=== PATIENT | male | born 1980 | race Caucasian/White ===

== ENCOUNTER 2017-06-09 22:55 | Emergency (ER) | payer SELFPAY ==
[~2017-06-09] VITALS: Ht 182.9 cm; Wt 85.0 kg
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
[2017-06-09 23:19] VITALS: BP 135/81; PULSE 97; RESP 12; TEMP 98.9; O2SAT 98
[2017-06-09] MEDS ORDERED: SODIUM CHLOR 0.9% 1000 ML INJ 1,000 ML IV ONE (23:31)
[2017-06-09 23:33] VITALS: RESP 17; O2SAT 99
[2017-06-09] MEDS ORDERED: SODIUM CHLORIDE 0.9% FLUSH 10 ML FLUSH IVF PRN (23:45)
[2017-06-09 23:46] LABS: AUTOMATED NEUTROPHIL # 3.7 TH/MM3 (1.8-7.7); BASOPHIL % 0.4 % (0.0-2.0); EOSINOPHIL # 0.1 TH/MM3 (0-0.4); EOSINOPHIL % 1.1 % (0.0-4.0); HEMATOCRIT 40.5 % (39.0-51.0); HEMO FLAGS DIFF FINAL; LYMPH % 23.4 % (9.0-44.0); LYMPHOCYTE # 1.3 TH/MM3 (1.0-4.8); MEAN CELL VOLUME 86.1 FL (80.0-100.0); MEAN CORPUSCULAR HEMOGLOBIN 29.9 PG (27.0-34.0); MEAN CORPUSCULAR HGB CONC 34.7 % (32.0-36.0); MONO % 10.5 % (0.0-8.0); NEUT % 64.6 % (16.0-70.0); PLATELET COUNT 222 TH/MM3 (150-450); RED CELL DISTRIBUTION WIDTH 14.1 % (11.6-17.2); WHITE BLOOD COUNT 5.7 TH/MM3 (4.0-11.0)
[2017-06-09 23:52] LABS: BLOOD, URINE NEG (NEG); GLUCOSE,URINE NEG (NEG); HYALINE CAST, URINE 1 /lpf (RARE); KETONE, URINE NEG (NEG); NITRITE,URINE NEG (NEG); PH, URINE 6.5 (5.0-8.5); SQUAMOUS EPITHELIAL CELL URINE <1 /hpf (0-5); URINE COLOR YELLOW (YELLW/STRAW)
[2017-06-09 23:58] LABS: COMMENT (UR) CULT NOT INDICATED; CULTURE IF INDICATED CULT NOT INDICATED
[2017-06-10 00:06] LABS: APTT (PATIENT) 26.4 SEC (24.3-30.1); PROTHROMBIN TIME - PATIENT 11.1 SEC (9.8-11.6)
[2017-06-10 00:22] LABS: ALKALINE PHOSPHATASE 145 U/L (45-117); TOTAL BILIRUBIN ADULT 0.3 MG/DL (0.2-1.0)
--- NOTE | 2017-06-10 00:24 | RADRPT ---
EXAM DATE/TIME: 06/09/2017 23:41 [facility] COMPARISON: No previous studies available for comparison. INDICATIONS : Short of breath after possible overdose. MEDICAL HISTORY : None. SURGICAL HISTORY : None. ENCOUNTER: Initial ACUITY: 1 day PAIN SCORE: 0/10 LOCATION: Bilateral chest FINDINGS: A single view of the chest demonstrates the lungs to be symmetrically aerated without evidence of mas s, infiltrate or effusion. The cardiomediastinal contours are unremarkable. Osseous structures are intact. CONCLUSION: 1. No acute cardiopulmonary disease. Charanjit Pace MD on June 10, 2017 at 0:23 Board Certified Radiologist. This report was verified electronically.
[2017-06-10 00:26] LABS: ALT (GPT) 29 U/L (12-78); ANION GAP 6 MEQ/L (5-15); AST (GOT) 56 U/L (15-37); BLOOD UREA NITROGEN 9 MG/DL (7-18); CHLORIDE 102 MEQ/L (98-107); GLOMERULAR FILTRATION RATE 66 ML/MIN (>89); SODIUM (NA) 138 MEQ/L (136-145)
[2017-06-10 00:27] LABS: ACETAMINOPHEN LESS THAN 2.0 MCG/ML (10.0-30.0); ALCOHOL LESS THAN 3 MG/DL (0-5); POTASSIUM 4.5 MEQ/L (3.5-5.1)
--- NOTE | 2017-06-10 18:43 | EKG ---
Date Performed: 06/09/2017 Time Performed: 23:14:59 PTAGE: 36 years EKG: Sinus rhythm NORMAL ECG INTERPRETATION BASED ON A DEFAULT AGE OF 39 YEARS Compared to prior tracing no significan t change PREVIOUS TRACING : 12/26/2010 15.30.36 DOCTOR: Lorri Roberts Interpretating Date/Time 06/10/2017 18:42:24
== END 2017-06-10 02:40 | disposition home or self-care (01) ==
LOC: NEPC 22:55
DX: T40.1X1A Poisoning by heroin, accidental (unintentional), initial encounter (principal); F17.200 Nicotine dependence, unspecified, uncomplicated; R06.02 Shortness of breath
CPT/HCPCS: 71010; 80053; 80307; 81001; 85025; 85610; 85730; 93005; 99285; J7030

== ENCOUNTER 2017-06-15 00:38 | Inpatient (IN) | payer SELFPAY ==
[2017-06-15] VITALS (11 sets, daily range): BP systolic 117–139; BP diastolic 62–82; PULSE 79–104; RESP 16–26; TEMP 97.6–99.1; O2SAT 95–98
[~2017-06-15] VITALS: Ht 188 cm; Wt 94.1 kg
[2017-06-15] MEDS ORDERED: LORazepam 2 MG/ML VIAL ONE (00:43)
[2017-06-15] MEDS ORDERED: KETAMINE HCL 500 MG/5 ML VIAL ONE (00:48)
[2017-06-15] MEDS ORDERED: LORazepam 2 MG/ML VIAL IM ONE ×3 (01:00)
[2017-06-15] MEDS ORDERED: KETAMINE HCL 500 MG/5 ML VIAL IM ONE (01:00)
[2017-06-15] MEDS ORDERED: SODIUM CHLOR 0.9% 1000 ML INJ 1,000 ML IV ONE (01:00)
--- NOTE | 2017-06-15 01:23 | PD ---
HPI Chief Complaint: overdose Time Seen by Provider: 00:48 Travel History International Travel<30 days: No Contact w/Intl Traveler<30days: No History of Present Illness HPI So 36-year-old man who presents to the emergency department brought in by EMS. Reportedly on a "drug binge" for the past several days without sleeping. He endorses heroin marijuana and cocaine use. Correlation about a friend's house who called EMS. He required restraint and sedation in route with 2 mg of Ativan. History Past Medical History Narrative Medical From review of records: hepatitis C status post successful treatment with Harvoni, polysubstance abuse , IV drug use. Social History Alcohol Use: No Tobacco Use: Yes (1 PPD) Allergies-Medications (Allergen,Severity, Reaction): Coded Allergies: No Known Allergies (Verified , 01/21/14) Reported Meds & Prescriptions Reported Meds & Active Scripts Active No Active Prescriptions or Reported Medications Review of Systems Except as stated in HPI: all other systems reviewed are Neg Physical Exam Narrative GENERAL: 36-year-old man, gesticulating wildly writhing and thrashing in the bed , minimally directable. SKIN: Hot and wet. HEAD: Atraumatic. Normocephalic. EYES: Pupils equal and round. No scleral icterus. No injection or drainage. ENT: No nasal bleeding or discharge. Mucous membranes pink and moist. CARDIOVASCULAR: Heart rate rapid, regular. No appreciable murmurs. RESPIRATORY: No accessory muscle use. Clear to auscultation. Breath sounds equal bilaterally. GASTROINTESTINAL: Abdomen soft, non-tender, nondistended. Hepatic and splenic margins not palpable. MUSCULOSKELETAL: No obvious deformities. No edema. No evidence of injury. NEUROLOGICAL: Agitated and hypervigilant, minimally directable, able to speak full sentences and answer some questions but nonsensical as well. Data Data Last Documented VS Vital Signs Date Time Temp Pulse Resp B/P (MAP) Pulse Ox O2 Delivery O2 Flow Rate FiO2 06/15/17 01:55 30 97 Room Air 06/15/17 00:50 99.1 104 137/80 (99) Orders Orders Lorazepam Inj (Ativan Inj) (06/15/17 00:43) Ketamine Inj (Ketalar Inj) (06/15/17 00:48) Ketamine Inj (Ketalar Inj) (06/15/17 01:00) Lorazepam Inj (Ativan Inj) (06/15/17 01:00) Lorazepam Inj (Ativan Inj) (06/15/17 01:00) Iv Access Insert/Monitor (06/15/17 00:54) Ecg Monitoring (06/15/17 00:54) Sodium Chlor 0.9% 1000 Ml Inj (Ns 1000 M (06/15/17 01:00) Complete Blood Count With Diff (06/15/17 00:54) Comprehensive Metabolic Panel (06/15/17 00:54) Creatine Kinase (Cpk) (06/15/17 00:54) Lorazepam Inj (Ativan Inj) (06/15/17 01:00) CKMB (06/15/17 01:15) CKMB% (06/15/17 01:15) Admit Order (Ed Use Only) (06/15/17 ) Labs Laboratory Tests Test 06/15/17 01:15 White Blood Count 17.7 TH/MM3 Red Blood Count 4.58 MIL/MM3 Hemoglobin 13.4 GM/DL Hematocrit 39.0 % Mean Corpuscular Volume 85.2 FL Mean Corpuscular Hemoglobin 29.2 PG Mean Corpuscular Hemoglobin Concent 34.3 % Red Cell Distribution Width 14.1 % Platelet Count 206 TH/MM3 Mean Platelet Volume 9.2 FL Neutrophils (%) (Auto) 70.4 % Lymphocytes (%) (Auto) 13.9 % Monocytes (%) (Auto) 14.9 % Eosinophils (%) (Auto) 0.4 % Basophils (%) (Auto) 0.4 % Neutrophils # (Auto) 12.5 TH/MM3 Lymphocytes # (Auto) 2.5 TH/MM3 Monocytes # (Auto) 2.6 TH/MM3 Eosinophils # (Auto) 0.1 TH/MM3 Basophils # (Auto) 0.1 TH/MM3 CBC Comment AUTO DIFF Differential Total Cells Counted 100 Neutrophils % (Manual) 79 % Lymphocytes % 15 % Monocytes % 6 % Neutrophils # (Manual) 14.0 TH/MM3 Differential Comment FINAL DIFF MANUAL Platelet Estimate NORMAL Platelet Morphology Comment NORMAL Red Cell Morphology Comment NORMAL Blood Urea Nitrogen 11 MG/DL Creatinine 1.10 MG/DL Random Glucose 64 MG/DL Total Protein 7.3 GM/DL Albumin 3.5 GM/DL Calcium Level 8.7 MG/DL Alkaline Phosphatase 122 U/L Aspartate Amino Transf (AST/SGOT) 110 U/L Alanine Aminotransferase (ALT/SGPT) 42 U/L Total Bilirubin 0.7 MG/DL Sodium Level 138 MEQ/L Potassium Level 4.0 MEQ/L Chloride Level 102 MEQ/L Carbon Dioxide Level 23.0 MEQ/L Anion Gap 13 MEQ/L Estimat Glomerular Filtration Rate 75 ML/MIN Total Creatine Kinase 2864 U/L Creatine Kinase MB 17.4 NG/ML Creatine Kinase MB % 0.6 % MDM Medical Decision Making Medical Screen Exam Complete: Yes Emergency Medical Condition: Yes Interpretation(s) LABS: CC remarkable for white count of 17.7 thousand CMP generally unremarkable. AST is a little bit elevated. Total CK 2864 Differential Diagnosis Agitated delirium, adverse effect of illicit drugs, drug withdrawal syndrome, other Narrative Course Medical decision-making 36-year-old man presents with agitated delirium clinical picture associated with polysubstance also drug abuse. Initially given serial doses of 2 mg of IM Ativan for a total of 6 mg total. Continued agitated delirium thrashing point restraints. Patient was given 300 mg or approximately 3 mg/kg ketamine with moderate response. Still with continued thrashing after 10 or 15 minutes. Patient was given a second dose of 200 mg IM ketamine and 2 mg of IM Ativan for a total of 8 mg by mouth Ativan total. Patient finally settled out some. At the point where it would get IV access, place patient back on a monitor. Given IV fluids, we'll check labs, monitor and the ICU. Critical Care Narrative Aggregate critical care time was 45 minutes. Time to perform other separately billable procedures was not included in the critical care time. My time did not include minutes spent treating any other patients simultaneously or on activities that did not directly contribute to the patient's treatment. The services I provided to this patient were to treat and/or prevent clinically significant deterioration that could result in: , disability, rhabdomyolysis, renal failure, respiratory failure, other. I provided critical care services requiring my management, as noted below: Chart data review, documentation time, medication orders and management, vital sign assessments/reviewing monitor data, ordering and reviewing lab tests, ordering and interpreting/reviewing x-rays and diagnostic studies, care of the patient and discussion of the patient with the admitting physicians. Diagnosis Primary Impression: Delirium, drug-induced Admitting Information Admitting Physician Requests: Admit Scripts No Active Prescriptions or Reported Meds Reymundo Engel MD Jun 15, 2017 01:23
[2017-06-15 01:36] LABS: AUTOMATED NEUTROPHIL # 12.5 TH/MM3 (1.8-7.7); BASOPHIL # 0.1 TH/MM3 (0-0.2); BASOPHIL % 0.4 % (0.0-2.0); EOSINOPHIL # 0.1 TH/MM3 (0-0.4); EOSINOPHIL % 0.4 % (0.0-4.0); LYMPH % 13.9 % (9.0-44.0); LYMPHOCYTE # 2.5 TH/MM3 (1.0-4.8); MEAN CELL VOLUME 85.2 FL (80.0-100.0); MEAN CORPUSCULAR HEMOGLOBIN 29.2 PG (27.0-34.0); MEAN CORPUSCULAR HGB CONC 34.3 % (32.0-36.0); MONO % 14.9 % (0.0-8.0); NEUT % 70.4 % (16.0-70.0); PLATELET COUNT 206 TH/MM3 (150-450); RED BLOOD COUNT 4.58 MIL/MM3 (4.50-5.90); RED CELL DISTRIBUTION WIDTH 14.1 % (11.6-17.2); WHITE BLOOD COUNT 17.7 TH/MM3 (4.0-11.0)
[2017-06-15 01:40] LABS: HEMO FLAGS AUTO DIFF
[2017-06-15 01:50] LABS: ALT (GPT) 42 U/L (12-78); ANION GAP 13 MEQ/L (5-15); AST (GOT) 110 U/L (15-37); BLOOD UREA NITROGEN 11 MG/DL (7-18); CHLORIDE 102 MEQ/L (98-107); GLOMERULAR FILTRATION RATE 75 ML/MIN (>89); SODIUM (NA) 138 MEQ/L (136-145)
[2017-06-15 02:04] LABS: ALKALINE PHOSPHATASE 122 U/L (45-117); CREATINE KINASE 2864 U/L (39-308); TOTAL BILIRUBIN ADULT 0.7 MG/DL (0.2-1.0)
[2017-06-15 02:12] LABS: POLYS (SEG NEUTROPHILS) 79 % (16-70); WBC DIFF SAMPLE 100
[2017-06-15 02:13] LABS: PLATELET ESTIMATE SMEAR NORMAL (NORMAL); PLATELET MORPHOLOGY NORMAL (NORMAL); SCAN/DIFF FINAL DIFF MANUAL
[2017-06-15 02:23] LABS: CKMB 17.4 NG/ML (0.5-3.6)
[2017-06-15] MEDS ORDERED: SENNOSIDES 8.6 MG TAB PO PRN (03:00)
[2017-06-15] MEDS ORDERED: ACETAMINOPHEN 325 MG TAB PO PRN (03:00)
[2017-06-15] MEDS ORDERED: ONDANSETRON HCL 4 MG/2 ML VIAL IVP PRN (03:00)
[2017-06-15] MEDS ORDERED: CHLORHEXIDINE GLUCONATE 2 % 1 PACK (2 CLOTHS) TOP PRN (03:00)
[2017-06-15] MEDS ORDERED: LACTULOSE SYRUP 20 GM/30 ML CUP PO PRN (03:00)
[2017-06-15] MEDS ORDERED: BISACODYL 10 MG SUPP RECTAL PRN (03:00)
[2017-06-15] MEDS ORDERED: MAGNESIUM HYDROXIDE SUSP 30 ML CUP PO PRN (03:00)
[2017-06-15] MEDS ORDERED: MISCELLANEOUS NURSING INFORMATION XX SCH (03:00)
[2017-06-15] MEDS ORDERED: SODIUM CHLORIDE 0.9% FLUSH 10 ML FLUSH IV FLUSH PRN (03:00)
[2017-06-15] MEDS: SODIUM CHLOR 0.9% 1000 ML INJ 1,000 ML IV SCH ×4 (03:09→20:36)
--- NOTE | 2017-06-15 03:11 | HHI.HP ---
[facility] Admission Diagnosis Agitated Delirium / AMS Diagnoses: (1) Delirium, drug-induced Diagnosis: Principal (2) Rhabdomyolysis Diagnosis: Principal (3) Leukocytosis Diagnosis: Principal (4) Dehydration Diagnosis: Principal Travel History International Travel<30 Days: No Contact w/Intl Traveler <30 Da: No Traveled to Known Affected Are: No History of Present Illness This is a 36-year-old male with a PMH of Hepatitis C, Tobacco Abuse and IVDU who was brought to the ER by EMS after taking multiple drugs, on arrival pt significantly agitated and combative. States he's been on a "binge" for the last several days, admits to Opiates, Cocaine and Marijuana. S/p Ketamine 500mg IM in addition to Ativan 8mg IV total in ER, currently in restraints, now calm. Recent ER visit 06/09/17 for accidental Heroin/Cocaine IV overdose, s/p Narcan, d/c'd from ER w/ referral to [facility]. BP 137/80, HR 104, O2 sat 97% on RA, Temp 99.1. WBC 17.7. Chemistry unremarkable except for GFR 75. CPK 2864. Review of Systems Except as stated in HPI: all other systems reviewed are Neg ROS: 14 point review of systems otherwise negative. Past Family Social History Past Medical History PMH: Hepatitis C, Tobacco Abuse and IVDU Past Surgical History PAST SURGICAL HISTORY: Back Surgery, Left Tib-fib Allergies: Coded Allergies: No Known Allergies (Verified , 01/21/14) Family History PAST FAMILY HISTORY: Reviewed. No h/o DM or CAD Social History PAST SOCIAL HISTORY: Negative for alcohol. Smokes 1ppd. IVDU w/ Heroin/ Cocaine. Physical Exam Vital Signs Vital Signs Date Time Temp Pulse Resp B/P (MAP) Pulse Ox O2 Delivery O2 Flow Rate FiO2 06/15/17 01:55 30 97 Room Air 06/15/17 00:50 99.1 104 16 137/80 (99) 97 Physical Exam PE: GENERAL: Middle-aged white male in no acute distress currently calm, in restraints. HEENT: PERRLA, EOMI. No scleral icterus or conjunctival pallor. No lid lag or facial droop. CARDIOVASCULAR: Regular rate and rhythm. No obvious murmurs to auscultation. No chest tenderness to palpation. RESPIRATORY: No obvious rhonchi or wheezing. Clear to auscultation. Breath sounds equal bilaterally. GASTROINTESTINAL: Abdomen soft, non-tender, nondistended. BS normal. MUSCULOSKELETAL: Extremities without clubbing, cyanosis, or edema. No obvious deformities. NEUROLOGICAL: Awake, alert and oriented x4. No focal neurologic deficits. Moving both upper and lower extremities spontaneously. Laboratory Laboratory Tests Test 06/15/17 01:15 White Blood Count 17.7 Red Blood Count 4.58 Hemoglobin 13.4 Hematocrit 39.0 Mean Corpuscular Volume 85.2 Mean Corpuscular Hemoglobin 29.2 Mean Corpuscular Hemoglobin Concent 34.3 Red Cell Distribution Width 14.1 Platelet Count 206 Mean Platelet Volume 9.2 Neutrophils (%) (Auto) 70.4 Lymphocytes (%) (Auto) 13.9 Monocytes (%) (Auto) 14.9 Eosinophils (%) (Auto) 0.4 Basophils (%) (Auto) 0.4 Neutrophils # (Auto) 12.5 Lymphocytes # (Auto) 2.5 Monocytes # (Auto) 2.6 Eosinophils # (Auto) 0.1 Basophils # (Auto) 0.1 CBC Comment AUTO DIFF Differential Total Cells Counted 100 Neutrophils % (Manual) 79 Lymphocytes % 15 Monocytes % 6 Neutrophils # (Manual) 14.0 Differential Comment FINAL DIFF MANUAL Platelet Estimate NORMAL Platelet Morphology Comment NORMAL Red Cell Morphology Comment NORMAL Blood Urea Nitrogen 11 Creatinine 1.10 Random Glucose 64 Total Protein 7.3 Albumin 3.5 Calcium Level 8.7 Alkaline Phosphatase 122 Aspartate Amino Transf (AST/SGOT) 110 Alanine Aminotransferase (ALT/SGPT) 42 Total Bilirubin 0.7 Sodium Level 138 Potassium Level 4.0 Chloride Level 102 Carbon Dioxide Level 23.0 Anion Gap 13 Estimat Glomerular Filtration Rate 75 Total Creatine Kinase 2864 Creatine Kinase MB 17.4 Creatine Kinase MB % 0.6 Result Diagram: 06/15/1711406/15/17114 Caprini VTE Risk Assessment Caprini VTE Risk Assessment: No/Low Risk (score <= 1) Caprini Risk Assessment Model Point Value = 1 Point Value = 2 Point Value = 3 Point Value = 5 Age 41-60 Minor surgery BMI > 25 kg/m2 Swollen legs Varicose veins or History of unexplained or recurrent spontaneous Oral contraceptives or hormone replacement Sepsis (< 1 month) Serious lung disease, including pneumonia (< 1 month) Abnormal pulmonary function Acute myocardial infarction Congestive heart failure (< 1 month) History of inflammatory bowel disease Medical patient at bed rest Age 61-74 Arthroscopic surgery Major open surgery (> 45 min) Laparoscopic surgery (> 45 min) Malignancy Confined to bed (> 72 hours) Immobilizing plaster cast Central venous access Age >= 75 History of VTE Family history of VTE Factor V Leiden Prothrombin [id number] Lupus anticoagulant Anticardiolipin antibodies Elevated serum homocysteine Heparin-induced thrombocytopenia Other congenital or acquired thrombophilia Stroke (< 1 month) Elective arthroplasty Hip, pelvis, or leg fracture Acute spinal cord injury (< 1 month) Prophylaxis Regimen Total Risk Factor Score Risk Level Prophylaxis Regimen 0-1 Low Early ambulation 2 Moderate Order ONE of the following: *Sequential Compression Device (SCD) *Heparin 5000 units SQ BID 3-4 Higher Order ONE of the following medications: *Heparin 5000 units SQ TID *Enoxaparin/Lovenox 40 mg SQ daily (WT < 150 kg, CrCl > 30 mL/min) *Enoxaparin/Lovenox 30 mg SQ daily (WT < 150 kg, CrCl > 10-29 mL/min) *Enoxaparin/Lovenox 30 mg SQ BID (WT < 150 kg, CrCl > 30 mL/min) AND/OR *Sequential Compression Device (SCD) 5 or more Highest Order ONE of the following medications: *Heparin 5000 units SQ TID (Preferred with Epidurals) *Enoxaparin/Lovenox 40 mg SQ daily (WT < 150 kg, CrCl > 30 mL/min) *Enoxaparin/Lovenox 30 mg SQ daily (WT < 150 kg, CrCl > 10-29 mL/min) *Enoxaparin/Lovenox 30 mg SQ BID (WT < 150 kg, CrCl > 30 mL/min) AND *Sequential Compression Device (SCD) Assessment and Plan Problem List: (1) Delirium, drug-induced ICD Code: F19.921 - Other psychoactive substance use, unspecified with intoxication with delirium Status: Acute (2) Rhabdomyolysis ICD Code: M62.82 - Rhabdomyolysis (3) Dehydration ICD Code: E86.0 - Dehydration (4) Leukocytosis ICD Code: D72.829 - Elevated white blood cell count, unspecified Assessment and Plan A/P: 1. Delirium: Drug Induced, admits to "drug binge" last several days, recent ER presentation 06/09/17 for accidental Heroin OD. Admits to Heroin, Cocaine and Marijuana. Significantly combative/agitated on arrival, s/p Ketamine 500mg IM and Ativan 8mg IV total, finally calm. In light of large amount of sedatives , will admit to ICU for close monitoring. Telemetry, IVF. 2. Rhabdomyolysis: CPK 2864, IVF for hydration, repeat CPK for trend. 3. Dehydration: GFR 75, IVF as above, repeat labs in am. 4. Leukocytosis: WBC 17. Afebrile, likely secondary to drug ingestion, repeat labs in am. 5. DVT Prophylaxis: SCD/Teds. 6. Social work for d/c planning as needed. 7. Case discussed w/ ER physician at length. Physician Certification 2 Midnight Certification Type: Admission for Inpatient Services Order for Inpatient Services The services are ordered in accordance with Medicare regulations or non- Medicare payer requirements, as applicable. In the case of services not specified as inpatient-only, they are appropriately provided as inpatient services in accordance with the 2-midnight benchmark. Estimated LOS (days): 2 days is the estimated time the patient will need to remain in the hospital, assuming treatment plan goals are met and no additional complications. Post-Hospital Plan: Not yet determined Soraida Connelly MD Jun 15, 2017 03:11
[2017-06-15] MEDS: CHLORHEXIDINE GLUCONATE 2 % 1 PACK (2 CLOTHS) TOP SCH ×2 (04:00→20:36)
[2017-06-15] MEDS: DOCUSATE SODIUM 50 MG/SENNA 8.6 MG TAB PO SCH ×2 (09:00→20:36)
[2017-06-15] MEDS: SODIUM CHLORIDE 0.9% FLUSH 10 ML FLUSH IV FLUSH SCH ×2 (09:00→20:36)
[2017-06-15 12:12] LABS: CKMB 20.5 NG/ML (0.5-3.6)
--- NOTE | 2017-06-15 14:25 | HHI.PR ---
Addendum to Inpatient Note Addendum Reason: Additional Documentation Additional Information easily awakens, complains of stiffness of the muscles oriented x 3. lungs clear, moves all extremities spontaenously, good peripheral pulses, lungs clear now admitted to cocaine use CK increase more Increase IVF rate to 150 cc/hr recheck BMP and CK in am Curtis Bhatt MD Jun 15, 2017 14:25
[2017-06-15 16:28] LABS: CKMB 21.5 NG/ML (0.5-3.6)
[2017-06-15] MEDS ORDERED: IBUPROFEN 600 MG TAB PO PRN (18:30)
[2017-06-15] MEDS ORDERED: traMADol HCL 50 MG TAB PO PRN (18:30)
[2017-06-15] MEDS ORDERED: FAMOTIDINE 20 MG TAB PO SCH (21:00)
--- NOTE | 2017-06-15 21:28 | PD.AMA ---
Against Medical Advice Note Discharge Disposition: Against Medical Advice Pt Condition on Discharge: Guarded AMA Statement Patient Teodoro Ross has decided to leave the hospital against medical advice. This patient has the capacity to refuse care and understands the risks of leaving, including permanent disability and/or , and has had an opportunity to ask questions about his condition. The patient has been informed that he may return for care at any time, and follow up has been arranged/ advised. Ju Watt Jun 15, 2017 21:28
== END 2017-06-15 21:43 | disposition left against medical advice (07) | DRG 894 ==
LOC: NEPE 00:38 → NEDA 02:42 → N03A 04:10
PROVIDERS: ADMIT Internal Medicine; ATTEND Internal Medicine
DX: F14.121 Cocaine abuse with intoxication with delirium (principal); M62.82 Rhabdomyolysis; E86.0 Dehydration; F17.210 Nicotine dependence, cigarettes, uncomplicated; Z86.19 Personal history of other infectious and parasitic diseases; Z78.1 Physical restraint status
CPT/HCPCS: 80053; 82550; 82552; 85007; 85027; 87641; 96360; 96372; J2060; J7030

== ENCOUNTER 2017-06-21 19:25 | Emergency (ER) | payer SELFPAY ==
[~2017-06-21] VITALS: Ht 190.5 cm; Wt 100.0 kg
[2017-06-21 19:26] VITALS: BP 149/78; PULSE 104; RESP 16; TEMP 98.8; O2SAT 96
[2017-06-21] MEDS ORDERED: CEPHALEXIN MONOHYDRATE 500 MG CAP PO ONE (19:45)
[2017-06-21] MEDS ORDERED: CLINDAMYCIN PHOS 900 MG/6 ML VIAL IM ONE (19:45)
[2017-06-21] MEDS ORDERED: CEPH-460 PO (19:48)
[2017-06-21] MEDS ORDERED: CLIN150 PO (19:48)
--- NOTE | 2017-06-21 20:00 | PD ---
HPI Chief Complaint: Skin Problem Time Seen by Provider: 19:42 Travel History International Travel<30 days: No Contact w/Intl Traveler<30days: No Traveled to known affect area: No History of Present Illness HPI 36-year-old white male presents to emergency orbital complains of pain and swelling to his nose after squeezing a pimple last evening. He states that he used a pair of tweezers to rupture the pimple in his right nostril. His nose has become increasing tender, red and swollen. He denies any fever or chills. Denies any history of skin infections. Symptoms are moderate. No alleviating factors. PFSH Past Medical History Narrative Medical Depression, substance abuse Depression: Yes Cancer: No Cardiovascular Problems: No Diminished Hearing: No Endocrine: No Genitourinary: No Immune Disorder: No Musculoskeletal: No Neurologic: No Psychiatric: No Reproductive: No Respiratory: No Tetanus Vaccination: < 5 Years Past Surgical History Other Surgery: Yes Social History Alcohol Use: No Tobacco Use: Yes (1 PPD) Substance Use: Yes (Cocaine, Heroin, Narcotic Pills, 06/14/17) Allergies-Medications (Allergen,Severity, Reaction): Coded Allergies: No Known Allergies (Verified Allergy, Unknown, 06/21/17) Reported Meds & Prescriptions Reported Meds & Active Scripts Active Cleocin (Clindamycin HCl) 150 Mg Cap 300 Mg PO Q6H 10 Days Keflex (Cephalexin) 500 Mg Capsule 500 Mg PO Q6H 10 Days Review of Systems General / Constitutional: Positive: Chills, No: Fever Eyes: No: Visual changes HENT: No: Headaches, Sore Throat, Nosebleed Cardiovascular: No: Chest Pain or Discomfort Respiratory: No: Shortness of Breath Gastrointestinal: No: Abdominal Pain Genitourinary: No: Dysuria Musculoskeletal: Positive: Pain (tip of the nose) Skin: Positive Rash Neurologic: No: Weakness Psychiatric: No: Depression Endocrine: No: Polydipsia Hematologic/Lymphatic: No: Easy Bruising Physical Exam Narrative GENERAL: Well-developed, well-nourished in no acute distress. Nontoxic appearing. HEAD: Patient has mild swelling of the tip of the nose. This is erythematous and mildly tender. There is a open draining abscess in the right tip of the nostril. There is no fluctuance or pointing EYES: Pupils equal round and reactive. Extraocular motions intact. No scleral icterus. No injection or drainage. ENT: TMs clear without erythema. The external auditory canals clear. Nose: clear . Posterior pharynx is pink and moist. No tonsillar edema or exudate. Uvula midline. Airway patent. NECK: Trachea midline.Supple, nontender, moves head freely. No central bony tenderness or spasm. CARDIOVASCULAR: Regular rate and rhythm without murmurs, gallops, or rubs. RESPIRATORY: Clear to auscultation. Breath sounds equal bilaterally. No wheezes , rales, or rhonchi. GASTROINTESTINAL: Abdomen soft, non-tender, nondistended. No hepato-splenomegaly , or palpable masses. No guarding. EXTREMITIES: No clubbing, cyanosis, or edema. No joint tenderness, effusion, or edema noted. BACK: Nontender without deformity or crepitance. No flank tenderness. Data Data Last Documented VS Vital Signs Date Time Temp Pulse Resp B/P (MAP) Pulse Ox O2 Delivery O2 Flow Rate FiO2 06/21/17 19:37 16 06/21/17 19:26 98.8 104 149/78 (101) 96 Room Air Orders Orders Clindamycin Inj (Cleocin Inj) (06/21/17 19:45) Cephalexin (Keflex) (06/21/17 19:45) MDM Medical Decision Making Medical Screen Exam Complete: Yes Emergency Medical Condition: Yes Medical Record Reviewed: Yes Differential Diagnosis MDM: High Differential diagnoses: Abscess, folliculitis, cellulitis, lymphangitis, abrasion, contact dermatitis Narrative Course Patient has an open draining abscess right nostril but has now developed a secondary cellulitis nose. Patient is given clindamycin 900 mg IM and Keflex 500 mg by mouth. He will be continued on these medicines. He is advised not to pick or squeeze his face. Patient verbally states understanding. Diagnosis Primary Impression: Facial cellulitis Additional Impression: right nostril abscess Patient Instructions: General Instructions Additional Instructions: Rest. Elevation. keep clean and dry. Warm compresses. Daily wound care with soap, water and Neosporin. Three Advil every 6 hours. Keflex and clindamycin. Do not pick or squeeze her face. Follow-up with a primary care doctor in 2 days Return to the ER for any problems. Med/Other Pt SpecificInfo: Prescription(s) given Scripts Clindamycin (Cleocin) 150 Mg Cap 300 MG PO Q6H for Infection for 10 Days, #80 CAP 0 Refills Prov: Conchis Zapata MD 06/21/17 Cephalexin (Keflex) 500 Mg Capsule 500 MG PO Q6H for Infection for 10 Days, #40 CAP 0 Refills Prov: Conchis Zapata MD 06/21/17 Disposition: 01 DISCHARGE HOME Condition: Stable Malick Whitman Jun 21, 2017 20:00
== END 2017-06-21 20:14 | disposition home or self-care (01) ==
LOC: NEPD 19:25
DX: L03.211 Cellulitis of face (principal); J34.0 Abscess, furuncle and carbuncle of nose; F17.210 Nicotine dependence, cigarettes, uncomplicated
CPT/HCPCS: 96372

== ENCOUNTER 2017-09-08 07:14 | Emergency (ER) | payer SELFPAY ==
[~2017-09-08] VITALS: Ht 190.5 cm; Wt 85.0 kg
[~2017-09-08 07:14] MED LIST: CEPH-460 PO; CLIN150 PO
[2017-09-08 07:15] VITALS: BP 136/81; PULSE 112; RESP 18; TEMP 98.2; O2SAT 99
[2017-09-08] MEDS ORDERED: SULFAMETHOXAZOLE-TRIMETHOPRIM DS 800-160 MG TAB PO ONE (08:00)
--- NOTE | 2017-09-08 08:07 | PD ---
HPI Chief Complaint: Flank/Kidney Pain Time Seen by Provider: 08:00 Travel History International Travel<30 days: No Contact w/Intl Traveler<30days: No Traveled to known affect area: No History of Present Illness HPI Please note that although the patient's chief complaint given to triage was flank pain. upon asking further details and specifically asking the patient to show me where he is hurting patient was able to point to his gluteal cleft. States that he has had pain there for about the last couple of days not improving, and seems to be getting worse. Patient states that he has noted a bump on his butt cheek. Rates it at about a 2 out of 10 3 out of 10 may be it is not severe pain it is just something that he brought here and wanted to bring me up-to-date on the main reason that he was here was for urinary frequency urgency and dysuria over the past 3-4 days PFSH Past Medical History ADHD: Yes Depression: Yes Cancer: No Cardiovascular Problems: No Diminished Hearing: No Endocrine: No Genitourinary: No Immune Disorder: No Musculoskeletal: No Neurologic: No Psychiatric: No Reproductive: No Respiratory: No Past Surgical History Other Surgery: Yes Social History Alcohol Use: No Tobacco Use: Yes (PD) Substance Use: Yes (06/14/17-Cocaine, Heroin, Narcotic Pills, IVDU) Allergies-Medications (Allergen,Severity, Reaction): Coded Allergies: No Known Allergies (Verified Allergy, Unknown, 09/08/17) Reported Meds & Prescriptions Reported Meds & Active Scripts Active No Active Prescriptions or Reported Medications Review of Systems General / Constitutional: No: Fever Eyes: No: Visual changes HENT: No: Headaches Cardiovascular: No: Chest Pain or Discomfort Respiratory: No: Shortness of Breath Gastrointestinal: No: Abdominal Pain Genitourinary: Positive: Urgency, Frequency, Dysuria Musculoskeletal: No: Pain Skin: Positive Lumps Neurologic: No: Weakness Psychiatric: No: Depression Endocrine: No: Polydipsia Hematologic/Lymphatic: No: Easy Bruising Physical Exam Narrative GENERAL: SKIN: Warm and dry. HEAD: Atraumatic. Normocephalic. EYES: Pupils equal and round. No scleral icterus. No injection or drainage. ENT: No nasal bleeding or discharge. Mucous membranes pink and moist. NECK: Trachea midline. No JVD. CARDIOVASCULAR: Regular rate and rhythm. RESPIRATORY: No accessory muscle use. Clear to auscultation. Breath sounds equal bilaterally. GASTROINTESTINAL: Abdomen soft, non-tender, nondistended. on gluteal cleft has a nickel size indurated area, which is warm and erythematous without streaking, fluctuance or crepitus c/w cellulitis, MUSCULOSKELETAL: Extremities without clubbing, cyanosis, or edema. No obvious deformities. NEUROLOGICAL: Awake and alert. No obvious cranial nerve deficits. Motor grossly within normal limits. Five out of 5 muscle strength in the arms and legs. Normal speech. PSYCHIATRIC: Appropriate mood and affect; insight and judgment normal. Data Data Last Documented VS Vital Signs Date Time Temp Pulse Resp B/P (MAP) Pulse Ox O2 Delivery O2 Flow Rate FiO2 09/08/17 07:35 106 16 09/08/17 07:15 98.2 136/81 (99) 99 Orders Orders Sulfamet-Trimeth Ds 800-160 Mg (Bactrim (09/08/17 08:00) Urinalysis - C+S If Indicated (09/08/17 08:00) Labs Laboratory Tests Test 09/08/17 08:00 Urine Color YELLOW Urine Turbidity HAZY Urine pH 6.0 Urine Specific [place] 1.028 Urine Protein 300 mg/dL Urine Glucose (UA) NEG mg/dL Urine Ketones TRACE mg/dL Urine Occult Blood NEG Urine Nitrite NEG Urine Bilirubin NEG Urine Urobilinogen 2.0 MG/DL Urine Leukocyte Esterase NEG Urine RBC 6 /hpf Urine WBC 6 /hpf Urine Calcium Oxalate Crystals FEW /hpf Urine Bacteria RARE /hpf Urine Hyaline Casts 3 /lpf Urine Mucus FEW /lpf Microscopic Urinalysis Comment CULT NOT INDICATED MDM Medical Decision Making Medical Screen Exam Complete: Yes Emergency Medical Condition: Yes Medical Record Reviewed: Yes Differential Diagnosis uti v pilonidal cellulitis Narrative Course patient was very impatient and left AMA before his ua results could be discussed. Diagnosis Primary Impression: pilonidal cellulitis Patient Instructions: Cellulitis (ED), General Instructions Scripts Sulfamethoxazole-Trimethoprim (Bactrim DS) 800-160 Mg Tab 1 TAB PO BID for Infection, #20 TAB 0 Refills Prov: Terry Daily MD 09/08/17 Disposition: 07 AGAINST MEDICAL ADVICE Condition: Fair Terry Daily MD Sep 08, 2017 08:07
[2017-09-08 08:20] LABS: BACTERIA, URINE RARE /hpf; BILIRUBIN, URINE NEG (NEG); BLOOD, URINE NEG (NEG); CALCIUM OXALATE CRYSTALS,URINE FEW /hpf; GLUCOSE,URINE NEG (NEG); HYALINE CAST, URINE 3 /lpf (RARE); KETONE, URINE TRACE mg/dL (NEG); MUCUS URINE FEW /lpf (OCC); NITRITE,URINE NEG (NEG); URINE COLOR YELLOW (YELLW/STRAW); URINE LEUKOCYTE ESTERASE NEG (NEG)
[2017-09-08] MEDS ORDERED: BACT800T5 PO (08:50)
== END 2017-09-08 08:54 | disposition left against medical advice (07) ==
LOC: NEPC 07:14
DX: L03.317 Cellulitis of buttock (principal); F17.200 Nicotine dependence, unspecified, uncomplicated
CPT/HCPCS: 81001; 99283

== ENCOUNTER 2017-09-18 22:27 | Emergency (ER) | payer SELFPAY ==
[~2017-09-18] VITALS: Ht 190.5 cm; Wt 81.5 kg
[~2017-09-18 22:27] MED LIST changes: +BACT800T5 PO; -CEPH-460 PO; -CLIN150 PO
[2017-09-18 22:28] VITALS: BP 142/69; PULSE 79; RESP 16; TEMP 98.5; O2SAT 98
== END 2017-09-18 23:25 | disposition left against medical advice (07) ==
LOC: NEPD 22:27
DX: Z53.21 Procedure and treatment not carried out due to patient leaving prior to being seen by health care provider (principal)
CPT/HCPCS: 99281

== ENCOUNTER 2017-09-19 00:25 | Emergency (ER) | payer SELFPAY ==
[~2017-09-19] VITALS: Ht 190.5 cm; Wt 82.0 kg
[2017-09-19 00:28] VITALS: BP 159/74; PULSE 75; RESP 18; TEMP 98.8; O2SAT 100
[2017-09-19 00:37] VITALS: BP 147/74; PULSE 97; RESP 18; TEMP 98.3; O2SAT 98
[2017-09-19] MEDS ORDERED: SODIUM CHLOR 0.9% 1000 ML INJ 1,000 ML IV ONE ×2 (00:45)
--- NOTE | 2017-09-19 00:56 | PD ---
HPI Chief Complaint: Psychiatric Symptoms Time Seen by Provider: 00:35 Travel History International Travel<30 days: No Contact w/Intl Traveler<30days: No Traveled to known affect area: No History of Present Illness HPI 37-year-old white male presents to emergency department requesting evaluation of a plugged sensation in his ears. He states that he is unsure if there is something crawling in his head. The patient was checked in earlier this evening in triage for left arm problem but left without being seen. The patient here appears to be under the influence of drugs. He is very confrontational and threatening at times. On questioning with the patient the patient no longer wants to stay here in the ER is requesting to leave. The patient denies any suicidal homicidal ideation. The patient will be allowed to leave without treatment. There is no indication for a Mc act at this time. He does not appear to be a threat to himself or others. PFSH Past Medical History ADHD: Yes Bipolar Disorder: Yes Depression: Yes Cancer: No Cardiovascular Problems: No Diminished Hearing: No Endocrine: No Genitourinary: No Immune Disorder: No Musculoskeletal: No Neurologic: No Psychiatric: No Reproductive: No Respiratory: No Schizophrenia: Yes Tetanus Vaccination: > 5 Years Influenza Vaccination: No Past Surgical History Other Surgery: Yes Social History Alcohol Use: No Tobacco Use: Yes (1/2PPD) Substance Use: Yes (-Cocaine, Heroin, Narcotic Pills, Meth, Methadone) Allergies-Medications (Allergen,Severity, Reaction): Coded Allergies: No Known Allergies (Verified Allergy, Unknown, 09/08/17) Reported Meds & Prescriptions Reported Meds & Active Scripts Active Review of Systems ROS Limitations: Poor Historian Physical Exam Narrative GENERAL: Well-nourished, well-developed patient. The patient appears to have substance induced psychosis. He is delusional at there is a bug in his ear. SKIN: Warm and dry. HEAD: Normocephalic and atraumatic. EYES: No scleral icterus. No injection or drainage. ENT: No nasal drainage noted. Mucous membranes pink. Airway patent. NECK: Supple, trachea midline. Moves head freely without obvious discomfort. CARDIOVASCULAR: Regular rate and rhythm without murmurs, gallops, or rubs. RESPIRATORY: Breath sounds equal bilaterally. No accessory muscle use. GASTROINTESTINAL: Abdomen soft, non-tender, nondistended. EXTREMITIES: No cyanosis or edema. BACK: Nontender without obvious deformity. No CVA tenderness. NEURO: Patient is alert and oriented. no sensorimotor deficits. Nonfocal. Normal speech. PSYCH: Patient is having formication. Data Data Last Documented VS Vital Signs Date Time Temp Pulse Resp B/P (MAP) Pulse Ox O2 Delivery O2 Flow Rate FiO2 09/19/17 00:37 98.3 97 18 147/74 (98) 98 Room Air Orders Orders Sodium Chlor 0.9% 1000 Ml Inj (Ns 1000 M (09/19/17 00:45) Sodium Chlor 0.9% 1000 Ml Inj (Ns 1000 M (09/19/17 00:45) MDM Medical Decision Making Medical Screen Exam Complete: Yes Emergency Medical Condition: Yes Medical Record Reviewed: Yes Differential Diagnosis MDM: High Differential diagnoses: Schizophrenia, schizoaffective disorder, bipolar, anxiety, depression, adjustment reaction, mood disorder NOS, ODD, depressive disorder NOS, dementia, dementia with agitation, psychosis NOS, substance induced mood disorder, DMDD, Asperger syndrome, infection,electrolyte abnormality, malingering. Narrative Course The patient has declined stay for an evaluation. He is not acutely suicidal homicidal. There is no indication for involuntary admission. The patient will be allowed to leave on his own accord. He is instructed to return at any time for further evaluation and treatment. He is verbally advised to avoid alcohol and drugs. 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 Return anytime for further evaluation treatment. Avoid any alcohol or drugs. Med/Other Pt SpecificInfo: No Meds Exist/No RX given Disposition: 01 DISCHARGE HOME Condition: Stable Malick Whitman Sep 19, 2017 00:56
== END 2017-09-19 01:02 | disposition home or self-care (01) ==
LOC: NEPD 00:25
DX: F19.959 Other psychoactive substance use, unspecified with psychoactive substance-induced psychotic disorder, unspecified (principal); F45.8 Other somatoform disorders; F17.200 Nicotine dependence, unspecified, uncomplicated; Z86.59 Personal history of other mental and behavioral disorders
CPT/HCPCS: 99281

== ENCOUNTER 2018-01-12 02:34 | Emergency (ER) | payer SELFPAY ==
[~2018-01-12] VITALS: Ht 190.5 cm; Wt 81.8 kg
[2018-01-12 02:40] VITALS: BP 126/66; PULSE 98; RESP 18; O2SAT 100
[2018-01-12 03:06] VITALS: O2SAT 98
[2018-01-12 03:24] LABS: AUTOMATED NEUTROPHIL # 13.1 TH/MM3 (1.8-7.7); BASOPHIL # 0.1 TH/MM3 (0-0.2); BASOPHIL % 0.3 % (0.0-2.0); EOSINOPHIL # 0.1 TH/MM3 (0-0.4); EOSINOPHIL % 0.7 % (0.0-4.0); HEMATOCRIT 38.4 % (39.0-51.0); HEMOGLOBIN 13.1 GM/DL (13.0-17.0); LYMPH % 6.5 % (9.0-44.0); MEAN CELL VOLUME 84.3 FL (80.0-100.0); MEAN CORPUSCULAR HEMOGLOBIN 28.8 PG (27.0-34.0); MEAN CORPUSCULAR HGB CONC 34.1 % (32.0-36.0); MEAN PLATELET VOLUME 7.2 FL (7.0-11.0); MONO % 5.7 % (0.0-8.0); MONOCYTE # 0.9 TH/MM3 (0-0.9); NEUT % 86.8 % (16.0-70.0); PLATELET COUNT 258 TH/MM3 (150-450); RED BLOOD COUNT 4.55 MIL/MM3 (4.50-5.90); RED CELL DISTRIBUTION WIDTH 14.8 % (11.6-17.2)
--- NOTE | 2018-01-12 03:26 | PD ---
HPI Chief Complaint: OD/ Ingestion Time Seen by Provider: 02:47 Travel History International Travel<30 days: No Contact w/Intl Traveler<30days: No Traveled to known affect area: No History of Present Illness HPI The patient is a 37 year old male who presents to the [facility] emergency department with a history of altered mentation with agitation that began prior to arrival. According to ambulance services, the back was called by the patient 's girlfriend who witnessed what appeared to be seizure-like activity. Ambulance services reported that the patient had no postictal state. The patient has had psychomotor agitation and intermittent writhing motions witnessed by them. The patient reports that throughout the day today he has used heroin, Dilaudid, methamphetamine, and marijuana. He denies any prior history of seizure disorder. He does report a history of hepatitis C, however he reports completing treatment with [facility]. The patient denies having any suicidal or homicidal ideation. He denies any intent to harm himself with his IV drug use. The patient denies any known recent fevers, cough, congestion, neck pain, chest pain, shortness of breath, abdominal pain, vomiting, diarrhea, urinary symptoms, or neurologic symptoms. [facility] Past Medical History Narrative Medical The patient's past medical history is significant for hepatitis C, tobacco abuse , IV drug use, polysubstance abuse ADHD: Yes Bipolar Disorder: Yes Depression: Yes Cancer: No Cardiovascular Problems: No Diminished Hearing: No Endocrine: No Genitourinary: No Hepatitis: Yes (Hep C) Immune Disorder: No Musculoskeletal: No Neurologic: No Psychiatric: No Reproductive: No Respiratory: No Schizophrenia: Yes Past Surgical History Narrative Surgical The patient's past surgical history is significant for back surgery, left tib- fib ORIF, facial bone surgery, splenectomy. Other Surgery: Yes (spleenectomy, facial bone surgery) Social History Alcohol Use: No Tobacco Use: Yes (1/2PPD) Substance Use: Yes (-Cocaine, Heroin, Narcotic Pills, Meth, Methadone) Allergies-Medications (Allergen,Severity, Reaction): Coded Allergies: No Known Allergies (Verified Allergy, Unknown, 01/12/18) Reported Meds & Prescriptions Reported Meds & Active Scripts Active No Active Prescriptions or Reported Medications Review of Systems Except as stated in HPI: all other systems reviewed are Neg General / Constitutional: No: Fever Eyes: No: Visual changes HENT: No: Headaches Cardiovascular: No: Chest Pain or Discomfort Respiratory: No: Shortness of Breath Gastrointestinal: No: Abdominal Pain Genitourinary: No: Dysuria Musculoskeletal: No: Pain Skin: No Rash Neurologic: No: Weakness, Focal Abnormalities, Change in Mentation, Slurred Speech, Sensory Disturbance Psychiatric: No: Depression, Suicidal Ideations, Homicidal Ideation Endocrine: No: Polydipsia Hematologic/Lymphatic: No: Easy Bruising Physical Exam Narrative General: The patient is a well-developed well-nourished male, agitated on arrival, however otherwise in no acute medical distress. Head and Neck exam: Head is normocephalic atraumatic. Eyes: EOMI, pupils are equal round and reactive to light. Nose: Midline septum with pink mucous membranes Mouth: Dentition unremarkable. Moist mucus membranes. Posterior oropharynx is not erythematous. No tonsillar hypertrophy. Uvula midline. Airway patent. Neck: No palpable lymphadenopathy. No nuchal rigidity. No thyromegaly. Cardiovascular: Regular rate and rhythm without murmurs, gallops, or rubs. No pulse deficit to the extremities on simultaneous auscultation and palpation of his radial artery. Lungs: Clear to auscultation bilaterally. No wheezes, rhonchi, or rales. Abdomen: Soft, without tenderness to palpation in all 4 quadrants of the abdomen. No guarding, rebound, or rigidity. Normal bowel sounds are audible. No tenderness on palpation of McBurney's point. Extremities: No clubbing, cyanosis, or edema. 2+ pulses in all 4 extremities. No calf tenderness on palpation. Back: No spinous process tenderness to palpation. No step-off or crepitus. No erythema or ecchymosis. No costovertebral angle tenderness to palpation. Neurologic Exam: Cranial nerves 2-12 were intact on exam. Strength is 5/5 in all 4 extremities. No sensory deficits noted. The patient is intermittently singing on exam. The patient has difficulty lying still Skin Exam: No rash noted. Intact skin that is warm and dry. Data Data Last Documented VS Vital Signs Date Time Temp Pulse Resp B/P (MAP) Pulse Ox O2 Delivery O2 Flow Rate FiO2 01/12/18 03:06 98 Room Air 01/12/18 02:40 98 18 Orders Orders Complete Blood Count With Diff (01/12/18 03:00) Basic Metabolic Panel (Bmp) (01/12/18 03:00) Iv Access Insert/Monitor (01/12/18 03:00) Ecg Monitoring (01/12/18 03:00) Oximetry (01/12/18 03:00) Labs Laboratory Tests Test 01/12/18 03:13 White Blood Count 15.0 TH/MM3 Red Blood Count 4.55 MIL/MM3 Hemoglobin 13.1 GM/DL Hematocrit 38.4 % Mean Corpuscular Volume 84.3 FL Mean Corpuscular Hemoglobin 28.8 PG Mean Corpuscular Hemoglobin Concent 34.1 % Red Cell Distribution Width 14.8 % Platelet Count 258 TH/MM3 Mean Platelet Volume 7.2 FL Neutrophils (%) (Auto) 86.8 % Lymphocytes (%) (Auto) 6.5 % Monocytes (%) (Auto) 5.7 % Eosinophils (%) (Auto) 0.7 % Basophils (%) (Auto) 0.3 % Neutrophils # (Auto) 13.1 TH/MM3 Lymphocytes # (Auto) 1.0 TH/MM3 Monocytes # (Auto) 0.9 TH/MM3 Eosinophils # (Auto) 0.1 TH/MM3 Basophils # (Auto) 0.1 TH/MM3 CBC Comment DIFF FINAL Differential Comment Blood Urea Nitrogen 19 MG/DL Creatinine 1.24 MG/DL Random Glucose 91 MG/DL Calcium Level 8.4 MG/DL Sodium Level 140 MEQ/L Potassium Level 4.0 MEQ/L Chloride Level 107 MEQ/L Carbon Dioxide Level 22.9 MEQ/L Anion Gap 10 MEQ/L Estimat Glomerular Filtration Rate 65 ML/MIN MDM Medical Decision Making Medical Screen Exam Complete: Yes Emergency Medical Condition: Yes Medical Record Reviewed: Yes Differential Diagnosis Psychomotor agitation related to polysubstance use, versus dystonic reaction, versus seizure activity Narrative Course During the course of the patient's emergency department visit, the patient's history, examination, and differential diagnosis were reviewed with the patient. The patient was placed on a cardiac exercise physiologist with oximetry and frequent blood pressure monitoring. The patient had IV access obtained and blood work sent for analysis. The patient was initially provided oral rehydration. The patient's laboratory studies were reviewed and remarkable for a white count of 15, hemoglobin 13.1, platelets 258 with neutrophils 86.8, basic metabolic profile is remarkable for BUN of 19, GFR 65, calcium 8.4 The patient will be observed in the emergency department for improvement in his mentation and ability to walk without assistance. The patient is encouraged to avoid illicit drug use. The patient is resting comfortably and feels better, is alert and in no distress. The patient's results and examination findings were discussed with the patient. The repeat examination is unremarkable and benign. The history, exam, diagnostic testing, and current condition do not suggest any significant pathology to warrant further testing, continued ED treatment, admission, or surgical evaluation at this point. The vital signs have been stable. The patient does not have uncontrollable pain, intractable vomiting, or other significant symptoms. The patient's condition is stable and appropriate for discharge. The patient will pursue further outpatient evaluation with a primary care physician or other designated or consulting physician as indicated in the discharge instructions. The patient is instructed to report back to the emergency department immediately for reexamination in the mean time if he develops any new or worsening signs or symptoms. The patient expressed understanding and was agreeable with this plan. Diagnosis Primary Impression: Altered mental status Qualified Codes: R41.82 - Altered mental status, unspecified Additional Impression: Polysubstance abuse Referrals: [facility] as needed Patient Instructions: General Instructions, Polysubstance Abuse (ED) Scripts No Active Prescriptions or Reported Meds Disposition: 01 DISCHARGE HOME Condition: Stable Jacqui Brannon MD Jan 12, 2018 03:26
[2018-01-12 03:40] LABS: BICARBONATE 22.9 MEQ/L (21.0-32.0); CALCIUM 8.4 MG/DL (8.5-10.1); CREATININE 1.24 MG/DL (0.60-1.30)
--- NOTE | 2018-01-12 05:36 | RADRPT ---
EXAM DATE: 01/12/2018 5:27 AM EDT AGE/SEX: 37 years / Male INDICATIONS: Cough, overdose. CLINICAL DATA: This is the patient's initial encounter. Patient reports that signs and symptoms have been present for 1 day and indicates a pain score of 0/10. MEDICAL/SURGICAL HISTORY: . Substance abuse. None. COMPARISON: No prior exams available for comparison. FINDINGS: Macro AP The lungs are clear. Cardiomediastinal silhouette within normal limits. No evide nce of pleural effusion or pneumothorax. CONCLUSION: No acute cardiopulmonary disease identified. Electronically signed by: Adam Salazar MD 01/12/2018 5:35 AM EDT
== END 2018-01-12 05:46 | disposition home or self-care (01) ==
LOC: NEPC 02:34
DX: R41.82 Altered mental status, unspecified (principal); F17.200 Nicotine dependence, unspecified, uncomplicated; R05 Cough; B19.20 Unspecified viral hepatitis C without hepatic coma; F19.10 Other psychoactive substance abuse, uncomplicated
CPT/HCPCS: 71045; 80048; 85025; 99284

== ENCOUNTER 2018-05-09 12:42 | Observation (INO) ==
[2018-05-09 13:24] VITALS: TEMP 97.6
[2018-05-09] MEDS ORDERED: Ketorolac Inj 30 MG/ML (IVP) Vial IV.PUSH ONE (14:13)
[2018-05-09 16:01] VITALS: O2SAT 100
[2018-05-09 16:06] LABS: Baso # (Auto) 0.1 th/mm3 (0.0-0.2); Baso % (Auto) 0.5 % (0.0-2.0); Eos # (Auto) 0.1 th/mm3 (0.0-0.4); Eos % (Auto) 0.7 % (0.0-4.0); Hematocrit 37.9 % (39.0-51.0); Hemoglobin 13.7 gm/dL (13.0-17.0); Lymph # (Auto) 1.6 th/mm3 (1.0-4.8); Lymph % (Auto) 16.5 % (9.0-44.0); Mean Corpuscular Hemoglobin 31.5 pg (27.0-34.0); Mean Corpuscular Volume 86.8 fL (80.0-100.0); Mean Platelet Volume 7.7 fL (7.0-11.0); Mono # (Auto) 1.6 th/mm3 (0.0-0.9); Mono % (Auto) 16.9 % (0.0-8.0); Neut # (Auto) 6.3 th/mm3 (1.8-7.7); Neut % (Auto) 65.4 % (16.0-70.0); Platelet Count 413 th/mm3 (150-450); Red Blood Count 4.37 mil/mm3 (4.50-5.90); White Blood Count 9.6 th/mm3 (4.0-11.0)
[2018-05-09 16:09] LABS: Mean Corpuscular HGB Conc 36.3 % (32.0-36.0)
[2018-05-09 16:22] LABS: Anion Gap 5 meq/L (5-15); Blood Urea Nitrogen 20 mg/dL (7-18); Calcium 9.1 mg/dL (8.5-10.1); Carbon Dioxide 28.2 meq/L (21.0-32.0); Chloride 105 meq/L (98-107); Glomerular Filtration Rate Greater Than 89 mL/min (>89); Glucose,Random 89 mg/dL (74-106); Potassium 4.9 meq/L (3.5-5.1); Sodium 138 meq/L (136-145)
--- NOTE | 2018-05-09 16:32 | XR ---
EXAM DATE: 05/09/2018 3:59 PM EDT AGE/SEX: 37 years / Male INDICATIONS: Arthritis. Swelling to lateral left knee for 9 days. [facility] pertaining to left knee swelling. CLINICAL DATA: This is the patient's initial encounter. Patient reports that signs and symptoms have been present for 2 weeks and indicates a pain score of 0/10. MEDICAL/SURGICAL HISTORY: . IVDU . Left tibia ORIF. COMPARISON: No prior exams available for comparison. FINDINGS: Bony structures are intact and in normal alignment. There is a intramedullary gina in the tibia. Joint s are intact without dislocation or significant arthropathy. Osseous density is normal. There is so me soft tissue swelling just above the patella. There are multiple skin dima noted most likely fro m prior recent surgery. No radiopaque foreign bodies seen. CONCLUSION: Nonspecific soft tissue swelling above the patella. This is in the location of multiple skin dima. Intramedullary gina in the tibia. Electronically signed by: Nicolas Lora MD 05/09/2018 4:31 PM EDT
[2018-05-09 16:45] LABS: Platelet Morphology Normal (Normal)
[2018-05-09 17:46] VITALS: BP 133/75; PULSE 87; RESP 20
[2018-05-09] MEDS ORDERED: Acetaminophen 325 MG Tablet PO PRN (18:11)
[2018-05-09] MEDS ORDERED: Bisacodyl 10 MG Supp RECTAL PRN ×2 (18:11→19:08)
--- NOTE | 2018-05-09 18:11 | P.HPIM ---
History of Present Illness Service: [facility] Primary Care Physician: No Primary Care Physician Chief Complaint: joint pain History of Present Illness: This is a 37-year-old CM with PMHx of IVDU who presents to the ED due to left knee pain. Patient has a history of septic arthritis of the left knee s/p arthrotomy with irrigation and debridement at [facility] performed by by Dr. Chun during a 04/23 to 05/08 admission. Patient at the time had a CT of the knee that showed a large amount of soft tissue swelling with edema, and moderate joint effusion. Infectious disease was on board and they recommended ceftriaxone daily until 06/03 patient is not a candidate for home IV antibiotic therapy considering history of active IV drug abuse, active heroin and meth amphetamine abuse. Of note, patient just reported that he was recently released from skilled nursing after serving 120 days. Patient left A on 05/08 and arrives here stating he needs IV antibiotics for his knee due to the increased swelling and pain since D/C. He has records which were obtained by the undersigned from [facility] stating that the patient will need Rocephin until June 03. He denies fever, chills, chest pain, shortness of breath. Previous admissions to [facility] on 06/2017 for delirium and rhabdomyolysis. Review of Systems All other systems reviewed negative except as stated in HPI PMFSH - History History Provided By: Patient - Medical History Medical History: Medical History (Last Reviewed 05/09/18 @ 18:57 by Lima Quintero MD) IV drug abuse Septic arthritis - Surgical History Surgical History: Surgical History (Last Reviewed 05/09/18 @ 18:58 by Lima Quintero MD) Hx of left knee surgery - Family History Family History: Family History (Last Updated 05/09/18 @ 18:58 by Lima Quintero MD) Other Family history normal - Social History I have reviewed the patient's Social History: Yes - Tobacco History Tobacco Use In Past 30 Days: Yes Smoking Status: Current every day smoker Tobacco Type: Cigarettes Packs Per Day: 1 - Alcohol History How Often Do You Have a Drink Containing Alcohol: Never - Substance Use History Substance History: Active Abuse - Substance Use Type Amphetamines Status: Active Opiates Status: Active LSD, Mushrooms Status: Active - Travel History Recent Travel in the [facility] Within the Last 8 Weeks: No Recent Travel Out of the Country Within the Last 8 Weeks: No - Immunization History Tetanus Immunization: <5 Years Medications and Allergies Allergies Allergy/AdvReac Type Severity Reaction Status Date / Time No Known Allergies Allergy Verified 05/09/18 13:47 Home Medications Medication Instructions Recorded Confirmed Type No Known Home Medications 05/09/18 05/09/18 History Exam Vital signs: Vital Signs 05/09/18 13:21 05/09/18 13:43 05/09/18 16:01 Temperature 97.6 F Pulse Rate 109 H 99 H 82 Respiratory Rate 17 16 18 Blood Pressure 162/71 H 153/68 H 129/74 Pulse Oximetry 98 97 100 05/09/18 17:45 Temperature Pulse Rate 87 Respiratory Rate 20 Blood Pressure 133/75 Pulse Oximetry 100 Intake & Output 05/08/18 05/09/18 05/09/18 18:59 06:59 18:59 Weight 117.934 kg Narrative: GENERAL: A well-nourished male, in NAD, lying comfortably in bed SKIN: Warm and dry. Multiple tattoos. Multiple well-healed lacerations and track faith. See knee exam. HEAD: Normocephalic. PERRLA, No scleral icterus. No injection or drainage. NECK: Supple, trachea midline. No JVD or lymphadenopathy. CARDIOVASCULAR: Regular rate and rhythm without murmurs, gallops, or rubs. RESPIRATORY: Breath sounds equal bilaterally. No accessory muscle use. GASTROINTESTINAL: Abdomen soft, non-tender, nondistended. MUSCULOSKELETAL: No cyanosis, L knee with effusion/edema and erythema, dima in place. BACK: Nontender without obvious deformity. No CVA tenderness. NEURO: AAOX3, motor system 5/5 Results - Labs CBC & Chem 7: 05/09/18 15:54 05/09/18 15:54 Labs: Short CBC 05/09/18 Range/Units 15:54 WBC 9.6 (4.0-11.0) th/mm3 Hgb 13.7 (13.0-17.0) gm/dL Hct 37.9 L (39.0-51.0) % Plt Count 413 D (150-450) th/mm3 BMP 05/09/18 15:54 Sodium 138 Potassium 4.9 Chloride 105 Carbon Dioxide 28.2 BUN 20 H Creatinine 0.87 Calcium 9.1 - Imaging Impressions Knee X-Ray 05/09/18 15:59 CONCLUSION: Nonspecific soft tissue swelling above the patella. This is in the location of multiple skin dima. Intramedullary gina in the tibia. Caprini VTE Risk Assessment Caprini VTE Risk Assessment: Moderate/High Risk (score >= 2) Caprini Risk Assessment Model: Point Value = 1 Point Value = 2 Point Value = 3 Point Value = 5 Age 41-60 Minor surgery BMI > 25 kg/m2 Swollen legs Varicose veins or History of unexplained or recurrent spontaneous Oral contraceptives or hormone replacement Sepsis (< 1 month) Serious lung disease, including pneumonia (< 1 month) Abnormal pulmonary function Acute myocardial infarction Congestive heart failure (< 1 month) History of inflammatory bowel disease Medical patient at bed rest Age 61-74 Arthroscopic surgery Major open surgery (> 45 min) Laparoscopic surgery (> 45 min) Malignancy Confined to bed (> 72 hours) Immobilizing plaster cast Central venous access Age >= 75 History of VTE Family history of VTE Factor V Leiden Prothrombin [id number] Lupus anticoagulant Anticardiolipin antibodies Elevated serum homocysteine Heparin-induced thrombocytopenia Other congenital or acquired thrombophilia Stroke (< 1 month) Elective arthroplasty Hip, pelvis, or leg fracture Acute spinal cord injury (< 1 month) Prophylaxis Regimen: Total Risk Factor Score Risk Level Prophylaxis Regimen 0-1 Low Early ambulation 2 Moderate Order ONE of the following: *Sequential Compression Device (SCD) *Heparin 5000 units SQ BID 3-4 Higher Order ONE of the following medications: *Heparin 5000 units SQ TID *Enoxaparin/Lovenox 40 mg SQ daily (WT < 150 kg, CrCl > 30 mL/min) *Enoxaparin/Lovenox 30 mg SQ daily (WT < 150 kg, CrCl > 10-29 mL/min) *Enoxaparin/Lovenox 30 mg SQ BID (WT < 150 kg, CrCl > 30 mL/min) AND/OR *Sequential Compression Device (SCD) 5 or more Highest Order ONE of the following medications: *Heparin 5000 units SQ TID (Preferred with Epidurals) *Enoxaparin/Lovenox 40 mg SQ daily (WT < 150 kg, CrCl > 30 mL/min) *Enoxaparin/Lovenox 30 mg SQ daily (WT < 150 kg, CrCl > 10-29 mL/min) *Enoxaparin/Lovenox 30 mg SQ BID (WT < 150 kg, CrCl > 30 mL/min) AND *Sequential Compression Device (SCD) Assessment and Plan - Plan This is a 37-year-old CM with PMHx of IVDU who presents to the ED due to septic arthritis of the left knee s/p arthrotomy with irrigation and debridement at [facility] performed by by Dr. Chun during a 04/23 to 05/08 admission. Patient left AMA on 05/08 and arrives here stating he needs IV antibiotics for his knee due to the increased swelling and pain since D/C, admitted for IP mgmt, HD#1 1. Septic Arthritis of Left Knee Continue Ceftriaxone 2gm IV Q24 hours Regimen was recommended per ID at previous hospitalization, records reviewed Cultures pending, will request records to obtain Ortho consulted Dr. Chun, who performed the surgery at [facility] Blood cultures obtained today on admission 2. History of IV Drug Use Will obtain UDS Monitor for signs of distress 3. DVT prophylaxis: Heparin 4. Disposition: Continue IV antibiotics and follow-up surgery reccs Code Status: full Discussed Condition With: patient
--- NOTE | 2018-05-09 18:26 | ED ---
HPI General Chief complaint: Skin/Abscess/Foreign Body Stated complaint: knee pain Time Seen by Provider: 05/09/18 13:41 Source: patient Mode of arrival: ambulatory Limitations: no limitations History of Present Illness HPI narrative: 37-year-old male complains of left knee pain. He has history of IV drug abuse. He had a history of septic arthritis and underwent a washout procedure in the OR at [facility] done by Dr. Chun. He left AMA yesterday and arrives here stating he needs IV antibiotics for his knee. He has records which were obtained by the undersigned from [facility] in [facility] stating that the patient will need Rocephin until June 03. He denies fever. Pain is moderate constant worse with palpation and range of motion. Related Data Home Medications Medication Instructions Recorded Confirmed No Known Home Medications 05/09/18 05/09/18 Allergies Allergy/AdvReac Type Severity Reaction Status Date / Time No Known Allergies Allergy Verified 05/09/18 13:47 Review of Systems ROS: all other systems reviewed are negative PMFSH Medical History Medical History Compartment syndrome of forearm (Acute) IV drug abuse (Acute) Patient denies medical problems (Acute) Track faith due to intravenous drug abuse (Acute) Medical history unknown (Acute) Surgical history unknown (Acute) Surgical History Surgical History History of fasciotomy (Acute) Hx of left knee surgery (Acute) Social History Social History Substance History: Active Abuse Smoking Status: Current every day smoker Tobacco Type: Cigarettes How Often Do You Have a Drink Containing Alcohol: Never Recent Travel in [facility] within the Last 8 Weeks: No Recent Out of Country Travel within the Last 8 Weeks: No Substance Abuse Detail Amphetamines: Substance Use Status: Active Opiates: Substance Use Status: Active LSD, Mushrooms: Substance Use Status: Active Immunization History Tetanus Immunization: <5 Years Exam Narrative Exam Narrative: GENERAL: 37-year-old male well-nourished well-developed mild distress secondary to pain in her anxiety SKIN: Focused skin assessment warm/dry. HEAD: Atraumatic. Normocephalic. EYES: Pupils equal and round. No scleral icterus. No injection or drainage. ENT: No nasal bleeding or discharge. Mucous membranes pink and moist. NECK: Trachea midline. No JVD. CARDIOVASCULAR: Regular rate and rhythm. No murmur appreciated. RESPIRATORY: No accessory muscle use. Clear to auscultation. Breath sounds equal bilaterally. GASTROINTESTINAL: Abdomen soft, non-tender, nondistended. Hepatic and splenic margins not palpable. MUSCULOSKELETAL: There is a 7 cm linear incision overlying the lateral aspect of the left knee with adjacent swelling and swelling generally the foot on the left side with minimal warmth and tenderness palpation. No fluctuance. NEUROLOGICAL: Awake and alert. No obvious cranial nerve deficits. Motor grossly within normal limits. Normal speech. PSYCHIATRIC: Appropriate mood and affect; insight and judgment normal. Course Initial Documented Vital Signs Temperature 97.6 F 05/09/18 13:21 Pulse Rate 109 H 05/09/18 13:21 Respiratory Rate 17 05/09/18 13:21 Blood Pressure 162/71 H 05/09/18 13:21 Pulse Oximetry 98 05/09/18 13:21 Last Documented Vital Signs Temperature 97.6 F 05/09/18 13:21 Pulse Rate 87 05/09/18 17:45 Respiratory Rate 20 05/09/18 17:45 Blood Pressure 133/75 05/09/18 17:45 Pulse Oximetry 100 05/09/18 17:45 Medical Decision Making MDM Narrative Medical decision making narrative: Patient signed out of outside hospital AMA following septic arthritis surgery done by Dr. Chun. Infectious disease reports Rocephin will be required until April 03 based on outside hospital paperwork. First dose given here. Case discussed with case management that describes infusion clinic may be an appropriate alternative for this patient and can be arranged on Friday. Case discussed with hospitalist Dr. Quintero. Medical Screen Exam Complete: Yes Emergency Medical Condition: Yes Differential Diagnosis Differential Diagnosis: Septic arthritis, cellulitis, sepsis Medical Records Medical records reviewed: Yes I reviewed the patient's medical records. Lab Data Lab results reviewed: Yes I reviewed the patient's lab results. Result diagrams: 05/09/18 15:54 05/09/18 15:54 Lab Results 05/09/18 05/09/18 Range/Units 15:54 15:54 WBC 9.6 (4.0-11.0) th/mm3 RBC 4.37 L (4.50-5.90) mil/mm3 Hgb 13.7 (13.0-17.0) gm/dL Hct 37.9 L (39.0-51.0) % MCV 86.8 (80.0-100.0) fL MCH 31.5 (27.0-34.0) pg MCHC 36.3 H (32.0-36.0) % RDW 17.0 (11.6-17.2) % Plt Count 413 D (150-450) th/mm3 MPV 7.7 (7.0-11.0) fL Prelim Diff (Auto) Slide review pending Neut % (Auto) 65.4 (16.0-70.0) % Lymph % (Auto) 16.5 (9.0-44.0) % [place] % (Auto) 16.9 H (0.0-8.0) % Eos % (Auto) 0.7 (0.0-4.0) % Baso % (Auto) 0.5 (0.0-2.0) % Neut # (Auto) 6.3 (1.8-7.7) th/mm3 Lymph # (Auto) 1.6 (1.0-4.8) th/mm3 [place] # (Auto) 1.6 H (0.0-0.9) th/mm3 Eos # (Auto) 0.1 (0.0-0.4) th/mm3 Baso # (Auto) 0.1 (0.0-0.2) th/mm3 WBC Differential . Diff Scan Auto diff confirmed Differential Comment . Platelet Estimate High H (Normal) Platelet Morphology Normal (Normal) Sodium 138 (136-145) meq/L Potassium 4.9 (3.5-5.1) meq/L Chloride 105 (98-107) meq/L Carbon Dioxide 28.2 (21.0-32.0) meq/L Anion Gap 5 (5-15) meq/L BUN 20 H (7-18) mg/dL Creatinine 0.87 (0.60-1.30) mg/dL Estimated GFR Greater than 89 (>89) mL/min Random Glucose 89 (74-106) mg/dL Calcium 9.1 (8.5-10.1) mg/dL Imaging Data Radiologist's impression: Knee X-Ray 05/09/18 15:59 CONCLUSION: Nonspecific soft tissue swelling above the patella. This is in the location of multiple skin dima. Intramedullary gina in the tibia. Discharge Plan Discharge Disposition Patient Disposition: 30 Still Patient Physicians Team ED Provider: Jagdeep Delvalle Primary Care Provider: Primary Care Sowmya Urrutia Rxs /Orders / Referrals /Forms Prescriptions: No Action No Known Home Medications RF: 0 Status ED Status: Admitted Observation Patient
[2018-05-09] MEDS ORDERED: Senna/Docusate Sodium 8.6/50 MG Tablet PO SCH ×2 (21:00)
[2018-05-09 21:01] LABS: Amphetamine Screen,Urine Pos (Neg); Barbiturate Screen,Urine Neg (Neg); Cannabinoid Screen,Urine Pos (Neg); Cocaine Screen,Urine Neg (Neg)
[2018-05-09 21:11] LABS: Opiate Screen,Urine Pos (Neg)
[2018-05-09] MEDS ORDERED: Heparin - SQ 10,000 UNITS/ML Vial SQ SCH (22:00)
== END 2018-05-09 21:47 | disposition left against medical advice (07) ==
LOC: NEDA 12:42 → NEPE 12:42 → NEPFCDU 19:58
PROVIDERS: ADMIT Family Medicine; ATTEND Family Medicine

== ENCOUNTER 2018-05-11 01:15 | Inpatient (IN) ==
[2018-05-11] MEDS ORDERED: Vancomycin Inj 1 GM/200 ML PIGGYBACK IV.SIG ONE (02:50)
[2018-05-11] MEDS ORDERED: Sod Chloride 0.9% Inj 1,000 ML IV.SIG ONE (02:50)
[2018-05-11] MEDS ORDERED: Piperacil/Tazo 3.375 GM Premix 50 ML IV.SIG ONE (02:50)
--- NOTE | 2018-05-11 02:50 | ED ---
HPI General Chief complaint: Medical Clearance Stated complaint: left ama leg infection Time Seen by Provider: 05/11/18 01:54 Source: patient Mode of arrival: ambulatory Limitations: no limitations History of Present Illness HPI narrative: The patient is a 37 year old male who presents to the [facility] emergency department with a history of history of left knee pain that began in April. He has been diagnosed with septic arthritis of the left knee and was admitted to [facility] from April 23 - May 08 status post arthrotomy with irrigation and debridement by Dr. Chun. The patient left that facility AGAINST MEDICAL ADVICE and then came to this facility. He reports that he was unhappy with the care at that facility. The patient was admitted to the hospital for 1 day and then, he left AMA from the hospital again. He reports that he left AMA due to wanting to take a shower. The patient reports that when he went home yesterday evening he had a fever with a T-max of 104.3. He reports that he has noticed increased swelling of his left leg. He is unsure whether he has been checked for a blood clot in that extremity. He reports that he did take Keflex and clindamycin and that he had leftover from a prior prescription. He denies having any chest pain, chest pressure, or shortness of breath. On review of systems otherwise, he denies having any cough, congestion, neck pain, abdominal pain, vomiting, diarrhea, urinary symptoms, or neurologic symptoms. Related Data Home Medications Medication Instructions Recorded Confirmed No Known Home Medications 05/09/18 05/11/18 Allergies Allergy/AdvReac Type Severity Reaction Status Date / Time No Known Allergies Allergy Verified 05/09/18 13:47 Review of Systems ROS: all other systems reviewed are negative ON LICENSE OF [facility] Medical History Medical History Compartment syndrome (Acute) IV drug abuse (Acute) Septic arthritis (Acute) Surgical History Surgical History H/O fasciotomy (Acute) Hx of left knee surgery (Acute) Family History Family History Other Family history normal Social History Social History Substance History: Active Abuse Second Hand Smoke Exposure: Yes Smoking Status: Current every day smoker Tobacco Type: Cigarettes Packs Per Day: 1 Cigarettes Per Day: 20.0 How Often Do You Have a Drink Containing Alcohol: Never Recent Travel in [facility] within the Last 8 Weeks: No Recent Out of Country Travel within the Last 8 Weeks: No Substance Abuse Detail Other: Substance Use Type Other:: pt states he does all drugs Substance Use Status: Active Immunization History Tetanus Immunization: >5 Years Exam Const General: cooperative, no acute distress and well developed Nutritional Appearance: well nourished Orientation: alert, awake and oriented x3 HENMT Head: normocephalic and atraumatic Nose: no nasal discharge and no epistaxis Mouth: moist mucous membranes Eyes Sclera: normal sclerae Pupils: PERRL and pinpoint Neck Neck: no meningeal signs, trachea midline and no JVD Resp Effort & Inspection: no use of accessory muscles Auscultation: clear to auscultation bilaterally Cardio Rate: regular rate Rhythm: regular rhythm Heart Sounds: no murmurs GI Inspection: non-distended Palpation: soft, no hepatosplenomegaly and nontender Auscultation: normal bowel sounds Back/Spine/Pelvis Back: no CVA tenderness Skin General: dry skin (warm) Neuro General: alert, awake, oriented x3 and other (Grossly nonfocal.) Speech: speech normal Motor: no movement abnormalities noted Extrem General: normal to inspection (Except involving the left lower extremity), no clubbing, no cyanosis and edema Laterality: on the left Left lower extremity: hip/thigh (The patient has swelling from the distal thigh down to the foot. The patient has a stapled wound along the anterior lateral knee. There is erythema associated with the knee wound. There is no drainage able to be expressed. The patient has a ballotable patella. The patient has calf tenderness on palpation. Negative Homans sign. No palpable cords.) Psych Mood: congruent mood Affect: normal affect Judgment: poor Course Consultations Consultation #1: The patient's case including history, pertinent physical examination findings, and laboratory studies were discussed with Dr Connelly. It was agreed that the patient would be admitted to the hospitalist service. Initial Documented Vital Signs Temperature 98.7 F 05/11/18 01:46 Pulse Rate 95 H 05/11/18 01:46 Respiratory Rate 16 05/11/18 01:46 Blood Pressure 126/73 05/11/18 01:46 Pulse Oximetry 99 05/11/18 01:46 Last Documented Vital Signs Temperature 97.8 F 05/11/18 08:00 Pulse Rate 68 05/11/18 08:00 Respiratory Rate 14 05/11/18 08:00 Blood Pressure 112/55 L 05/11/18 08:00 Pulse Oximetry 98 05/11/18 08:00 Medical Decision Making MDM Narrative Medical decision making narrative: During the course of the patient's emergency department visit, the patient's history, examination, and differential diagnosis were reviewed with the patient. The patient was placed on a patient monitor with oximetry and frequent blood pressure monitoring. The patient had IV access obtained and blood work sent for analysis. Diagnostic evaluation was started regarding the patient's left leg pain. The patient was initially provided normal saline 1 L IV fluid bolus, broad- spectrum antibiotic coverage was started to include Zosyn and vancomycin. The patient's diagnostic studies are remarkable for a white count of 9.2, hemoglobin 13.2, platelets are 521 was 17 monocytes, PT 11.9, PTT 33.6, chemistry is remarkable for a BUN of 27, GFR of 72, C-reactive protein 14.4, total protein 8.5, albumin 3.3, lactic acid within normal limits. A chest x- ray revealed mild underinflated exam without any acute cardiopulmonary disease, left lower extremity ultrasound reveals no evidence of DVT. The patient sedimentation rate was also elevated. The patient will be admitted to the hospital for treatment of septic arthritis of the left knee. The patient's results were discussed with the patient, including the plan of care. I explained that further testing and/ or monitoring is indicated based on the patient's history, examination, and/ or laboratory findings. Therefore, I recommended admission for additional evaluation. The patient expressed understanding and was agreeable with this plan. The patient was admitted to the hospital in guarded condition and sent to a bed under the care of the [facility] service. Medical Screen Exam Complete: Yes Emergency Medical Condition: Yes Differential Diagnosis Differential Diagnosis: Septic arthritis, versus cellulitis, versus DVT, versus osteomyelitis Medical Records Medical records reviewed: Yes I reviewed the patient's medical records. Lab Data Lab results reviewed: Yes I reviewed the patient's lab results. Result diagrams: 05/11/18 02:54 05/11/18 02:54 Lab Results 05/11/18 05/11/18 05/11/18 Range/Units 02:54 02:54 02:54 WBC 9.2 (4.0-11.0) th/mm3 RBC 4.37 L (4.50-5.90) mil/mm3 Hgb 13.2 (13.0-17.0) gm/dL Hct 38.2 L (39.0-51.0) % MCV 87.3 (80.0-100.0) fL MCH 30.2 (27.0-34.0) pg MCHC 34.6 (32.0-36.0) % RDW 17.2 (11.6-17.2) % Plt Count 521 H (150-450) th/mm3 MPV 7.7 (7.0-11.0) fL Neut % (Auto) 59.8 (16.0-70.0) % Lymph % (Auto) 22.1 (9.0-44.0) % [place] % (Auto) 17.0 H (0.0-8.0) % Eos % (Auto) 0.7 (0.0-4.0) % Baso % (Auto) 0.4 (0.0-2.0) % Neut # (Auto) 5.5 (1.8-7.7) th/mm3 Lymph # (Auto) 2.0 (1.0-4.8) th/mm3 [place] # (Auto) 1.6 H (0.0-0.9) th/mm3 Eos # (Auto) 0.1 (0.0-0.4) th/mm3 Baso # (Auto) 0.0 (0.0-0.2) th/mm3 WBC Differential . Differential Comment Auto diff final ESR 57 H (0-15) mm/hr PT 11.9 H (9.8-11.6) sec INR 1.2 Ratio APTT 33.6 H (24.3-30.1) sec Sodium (136-145) meq/L Potassium (3.5-5.1) meq/L Chloride (98-107) meq/L Carbon Dioxide (21.0-32.0) meq/L Anion Gap (5-15) meq/L BUN (7-18) mg/dL Creatinine (0.60-1.30) mg/dL Estimated GFR (>89) mL/min Random Glucose (74-106) mg/dL Lactic Acid (0.4-2.0) mmol/L Calcium (8.5-10.1) mg/dL Magnesium (1.5-2.5) mg/dL Total Bilirubin (0.2-1.0) mg/dL AST (15-37) U/L ALT (12-78) U/L Alkaline Phosphatase (45-117) U/L C-Reactive Protein (0.00-0.30) mg/dL Total Protein (6.4-8.2) g/dL Albumin (3.4-5.0) g/dL 05/11/18 05/11/18 Range/Units 02:54 02:54 WBC (4.0-11.0) th/mm3 RBC (4.50-5.90) mil/mm3 Hgb (13.0-17.0) gm/dL Hct (39.0-51.0) % MCV (80.0-100.0) fL MCH (27.0-34.0) pg MCHC (32.0-36.0) % RDW (11.6-17.2) % Plt Count (150-450) th/mm3 MPV (7.0-11.0) fL Neut % (Auto) (16.0-70.0) % Lymph % (Auto) (9.0-44.0) % [place] % (Auto) (0.0-8.0) % Eos % (Auto) (0.0-4.0) % Baso % (Auto) (0.0-2.0) % Neut # (Auto) (1.8-7.7) th/mm3 Lymph # (Auto) (1.0-4.8) th/mm3 [place] # (Auto) (0.0-0.9) th/mm3 Eos # (Auto) (0.0-0.4) th/mm3 Baso # (Auto) (0.0-0.2) th/mm3 WBC Differential Differential Comment ESR (0-15) mm/hr PT (9.8-11.6) sec INR Ratio APTT (24.3-30.1) sec Sodium 136 (136-145) meq/L Potassium 4.2 (3.5-5.1) meq/L Chloride 98 (98-107) meq/L Carbon Dioxide 27.3 (21.0-32.0) meq/L Anion Gap 11 (5-15) meq/L BUN 27 H (7-18) mg/dL Creatinine 1.14 (0.60-1.30) mg/dL Estimated GFR 72 L (>89) mL/min Random Glucose 82 (74-106) mg/dL Lactic Acid 0.7 (0.4-2.0) mmol/L Calcium 8.7 (8.5-10.1) mg/dL Magnesium 2.4 (1.5-2.5) mg/dL Total Bilirubin 0.5 (0.2-1.0) mg/dL AST 30 (15-37) U/L ALT 29 (12-78) U/L Alkaline Phosphatase 87 (45-117) U/L C-Reactive Protein 14.40 H (0.00-0.30) mg/dL Total Protein 8.5 H (6.4-8.2) g/dL Albumin 3.3 L (3.4-5.0) g/dL Imaging Data Radiologist's impression: Chest X-Ray 05/11/18 02:51 CONCLUSION: Mildly underinflated examination without an acute cardiopulmonary abnormality identified. Venous Doppler Study 05/11/18 02:56 CONCLUSION: No venous thrombosis is identified in the left lower extremity. Discharge Plan Discharge Disposition Patient Disposition: 30 Still Patient Discharge Details Diagnosis: Septic arthritis Physicians Team ED Provider: Jacqui Brannon Primary Care Provider: Primary Care Sowmya Urrutia Attending Provider: Chito Bautista Other Providers: Jaiden Chun Discharge Interventions Interventions: ED Discharge Assessment Last Done: 05/11/18 04:55 Status ED Status: Left Department Discharge Information Discharge Date/Time: 05/11/18 04:55
[2018-05-11 03:11] LABS: Baso % (Auto) 0.4 % (0.0-2.0); Eos # (Auto) 0.1 th/mm3 (0.0-0.4); Eos % (Auto) 0.7 % (0.0-4.0); Hematocrit 38.2 % (39.0-51.0); Hemoglobin 13.2 gm/dL (13.0-17.0); Lymph % (Auto) 22.1 % (9.0-44.0); Mean Corpuscular HGB Conc 34.6 % (32.0-36.0); Mean Corpuscular Hemoglobin 30.2 pg (27.0-34.0); Mean Corpuscular Volume 87.3 fL (80.0-100.0); Mean Platelet Volume 7.7 fL (7.0-11.0); Mono # (Auto) 1.6 th/mm3 (0.0-0.9); Neut # (Auto) 5.5 th/mm3 (1.8-7.7); Neut % (Auto) 59.8 % (16.0-70.0); Platelet Count 521 th/mm3 (150-450); Red Blood Count 4.37 mil/mm3 (4.50-5.90); Red Cell Distribution Width 17.2 % (11.6-17.2); White Blood Count 9.2 th/mm3 (4.0-11.0)
[2018-05-11 03:23] LABS: Activated Partial Thrombo Time 33.6 sec (24.3-30.1); INR 1.2 Ratio; Prothrombin Time 11.9 sec (9.8-11.6)
[2018-05-11 03:26] LABS: Alanine Aminotransferase 29 U/L (12-78); Albumin 3.3 g/dL (3.4-5.0); Anion Gap 11 meq/L (5-15); Aspartate Aminotransferase 30 U/L (15-37); Blood Urea Nitrogen 27 mg/dL (7-18); Calcium 8.7 mg/dL (8.5-10.1); Carbon Dioxide 27.3 meq/L (21.0-32.0); Chloride 98 meq/L (98-107); Glomerular Filtration Rate 72 mL/min (>89); Glucose,Random 82 mg/dL (74-106); Magnesium 2.4 mg/dL (1.5-2.5); Potassium 4.2 meq/L (3.5-5.1); Sodium 136 meq/L (136-145)
[2018-05-11 03:28] LABS: Alkaline Phosphatase 87 U/L (45-117); Total Protein 8.5 g/dL (6.4-8.2)
--- NOTE | 2018-05-11 03:33 | XR ---
EXAM DATE: 05/11/2018 2:51 AM EDT AGE/SEX: 37 years / Male INDICATIONS: Shortness of breath. CLINICAL DATA: This is the patient's initial encounter. Patient reports that signs and symptoms have been present for 1 day and indicates a pain score of 0/10. MEDICAL/SURGICAL HISTORY: . IV drug user. . Orthopedic surgery. COMPARISON: [facility] [place]ST 1V SINGLE AP, 04/25/2018. . FINDINGS: Portable AP view of the chest demonstrates a normal-sized cardiac silhouette. No effusion, consolidat ion, or pneumothorax is identified. The bones and soft tissues demonstrate no acute finding. CONCLUSION: Mildly underinflated examination without an acute cardiopulmonary abnormality identified. Electronically signed by: Anastacio Turk MD 05/11/2018 3:32 AM EDT
[2018-05-11] MEDS ORDERED: Vancomycin Inj 1,000 MG in Sodium Chlor 0.9% Inj 250 ML IV.SIG ONE ×2 (03:45→05:00)
[2018-05-11] MEDS ORDERED: Vancomycin Consult Pharmacy OTHER PRN (03:53)
[2018-05-11] MEDS ORDERED: Bisacodyl 10 MG Supp RECTAL PRN (03:54)
[2018-05-11] MEDS ORDERED: Acetaminophen 325 MG Tablet PO PRN (03:54)
[2018-05-11] MEDS: Sod Chloride 0.9% Inj 1,000 ML IV.CONT SCH ×3 (04:15→15:43)
--- NOTE | 2018-05-11 04:38 | US ---
EXAM DATE: 05/11/2018 2:56 AM EDT AGE/SEX: 37 years / Male INDICATIONS: Left lower extremity pain and swelling. CLINICAL DATA: This is the patient's initial encounter. Patient reports that signs and symptoms have been present for 2 weeks and indicates a pain score of 9/10. MEDICAL/SURGICAL HISTORY: . Compartment syndrome of right forearm. IV drug abuse. Septic arth ritis. . Fasciotomy of right forearm. Left knee surgery. COMPARISON: No prior exams available for comparison. TECHNIQUE: Venous ultrasound of both lower extremities was performed from the inguinal ligament to t he proximal calf. Real-time, color Doppler and spectral tracing, compression and augmentation techni ques were used. FINDINGS: Normal compression of the deep venous system from the inguinal region to the proximal calf . No echogenic clot is seen. Normal response of the venous system to augmentation and respiration. CONCLUSION: No venous thrombosis is identified in the left lower extremity. Electronically signed by: Anastacio Turk MD 05/11/2018 4:37 AM EDT
--- NOTE | 2018-05-11 07:16 | P.PNOP ---
Subjective Interval history: patient known to [facility] for left septic knee s/p I&D last week at [facility] patient left [facility] because was not happy with his pain meds. reports left knee pain and swelling. reports pain with movement. Physical Exam Vital signs: Vital Signs 05/11/18 01:46 05/11/18 02:51 05/11/18 04:00 Temperature 98.7 F 99.0 F Pulse Rate 95 H 70 80 Respiratory Rate 16 16 Blood Pressure 126/73 117/58 L Pulse Oximetry 99 100 99 05/11/18 05:16 Temperature Pulse Rate Respiratory Rate 20 Blood Pressure Pulse Oximetry Intake & Output 05/10/18 05/11/18 05/11/18 18:59 06:59 18:59 Intake Total 1550 / 1550 Balance 1550 / 1550 Weight 96 kg Intake: IV 1550 / 1550 Zosyn 3.375 GM Premix 50 ML @ 50 / 50 100 mls/hr IV.SIG ONCE ONE Rx#: [id number] NS Inj 1,000 ML @ Wide Open IV. 1000 / 1000 SIG BOLUS ONE Rx#:[id number] Vancomycin Inj 1,000 MG In NS 500 / 500 Inj 250 ML @ 250 mls/hr IV.SIG ONCE ONE Rx#:[id number] Narrative: LLE: 3+ swelling of left knee. pain with movement. no erythema present. significant fluctuation and tenderness over incision. Results - Labs CBC & Chem 7: 05/11/18 02:54 05/11/18 02:54 Laboratory Results - last 24 hr 05/11/18 05/11/18 05/11/18 02:54 02:54 02:54 WBC 9.2 RBC 4.37 L Hgb 13.2 Hct 38.2 L MCV 87.3 MCH 30.2 MCHC 34.6 RDW 17.2 Plt Count 521 H MPV 7.7 Neut % (Auto) 59.8 Lymph % (Auto) 22.1 [place] % (Auto) 17.0 H Eos % (Auto) 0.7 Baso % (Auto) 0.4 Neut # (Auto) 5.5 Lymph # (Auto) 2.0 [place] # (Auto) 1.6 H Eos # (Auto) 0.1 Baso # (Auto) 0.0 WBC Differential . Differential Comment Auto diff final ESR 57 H PT 11.9 H INR 1.2 APTT 33.6 H Sodium Potassium Chloride Carbon Dioxide Anion Gap BUN Creatinine Estimated GFR Random Glucose Lactic Acid Calcium Magnesium Total Bilirubin AST ALT Alkaline Phosphatase C-Reactive Protein Total Protein Albumin 05/11/18 05/11/18 02:54 02:54 WBC RBC Hgb Hct MCV MCH MCHC RDW Plt Count MPV Neut % (Auto) Lymph % (Auto) [place] % (Auto) Eos % (Auto) Baso % (Auto) Neut # (Auto) Lymph # (Auto) [place] # (Auto) Eos # (Auto) Baso # (Auto) WBC Differential Differential Comment ESR PT INR APTT Sodium 136 Potassium 4.2 Chloride 98 Carbon Dioxide 27.3 Anion Gap 11 BUN 27 H Creatinine 1.14 Estimated GFR 72 L Random Glucose 82 Lactic Acid 0.7 Calcium 8.7 Magnesium 2.4 Total Bilirubin 0.5 AST 30 ALT 29 Alkaline Phosphatase 87 C-Reactive Protein 14.40 H Total Protein 8.5 H Albumin 3.3 L - Imaging Impressions Chest X-Ray 05/11/18 02:51 CONCLUSION: Mildly underinflated examination without an acute cardiopulmonary abnormality identified. Venous Doppler Study 05/11/18 02:56 CONCLUSION: No venous thrombosis is identified in the left lower extremity. Assessment and Plan - Assessment and Plan 1) Left Septic knee s/p I&D last week by [facility] -JORGE LUIS -work on ROM -Abx -will likely require repeat I&D of left knee. possibly tomorrow -npo after MN -consents on chart
[2018-05-11] MEDS: Piperacil/Tazo 4.5 GM Premix 4.5 GM/100 ML BAG IV.SIG SCH ×3 (08:39→21:06)
[2018-05-11] MEDS: Senna/Docusate Sodium 8.6/50 MG Tablet PO SCH ×2 (08:39→21:07)
--- NOTE | 2018-05-11 09:30 | P.HP ---
History of Present Illness Primary Care Physician: No Primary Care Physician History of Present Illness: This is a pleasant 37 y/o Male who presents to the [facility] emergency department with a history of left knee pain that began in April. He has been diagnosed with septic arthritis of the left knee and was admitted to [facility] from April 23 - May 08 status post arthrotomy with irrigation and debridement by Dr. Chun. The patient left that facility AGAINST MEDICAL ADVICE and then came to this facility. He reports that he was unhappy with the care at that facility. The patient was admitted to the hospital for 1 day and then, he left AMA from the hospital again. He reports that he left AMA due to wanting to take a shower. The patient reports that when he went home yesterday evening he had a fever with a T-max of 104.3. He reports that he has noticed increased swelling of his left leg. He is unsure whether he has been checked for a blood clot in that extremity. He reports that he did take Keflex and clindamycin and that he had leftover from a prior prescription. He denies having any chest pain, chest pressure, or shortness of breath. Review of Systems All other systems reviewed negative except as stated in HPI PMFSH - History History Provided By: Patient - Medical History Medical History: Medical History (Last Reviewed 05/11/18 @ 03:02 by Jacqui Brannon MD) Compartment syndrome IV drug abuse Septic arthritis - Surgical History Surgical History: Surgical History (Last Reviewed 05/11/18 @ 03:02 by Jacqui Brannon MD) H/O fasciotomy Hx of left knee surgery - Family History Family History: Family History (Last Reviewed 05/11/18 @ 09:29 by Chito Bautista MD) Other Family history normal - Tobacco History Second Hand Smoke Exposure: Yes Tobacco Use In Past 30 Days: Yes Smoking Status: Current every day smoker Tobacco Type: Cigarettes Packs Per Day: 1 - Alcohol History How Often Do You Have a Drink Containing Alcohol: Never - Substance Use History Substance History: Active Abuse - Substance Use Type Other Type: pt states he does all drugs Status: Active Route Used: Inhalation Reason for Use: Get High - Travel History Recent Travel in the [place] Within the Last 8 Weeks: No Recent Travel Out of the Country Within the Last 8 Weeks: No - Immunization History Tetanus Immunization: >5 Years Medications and Allergies Active Medications: Active Medications Acetaminophen (Tylenol) 650 mg PO Q4H PRN PRN Reason: Temp > 100.4, PAIN 1-10 Al Hydroxide/Mg Hydroxide (Milk Of Magnesia Liq) 30 ml PO Q12H PRN PRN Reason: Mild Constipation Bisacodyl (Dulcolax Supp) 10 mg RECTAL DAILY PRN PRN Reason: SEVERE CONSITIPATION Sodium Chloride (Ns Inj) 1,000 mls @ 100 mls/hr IV.CONT .Q10H [facility] Last Infusion: 05/11/18 04:54 Dose: 100 mls/hr Piperacillin/Tazobactam/Dextrose (Zosyn 4.5 Gm Premix) 4.5 gm in 100 mls @ 200 mls/hr IV.SIG Q6H [facility] Last Admin: 05/11/18 08:39 Dose: 200 mls/hr Vancomycin HCl 1,500 mg/ (Sodium Chloride) 515 mls @ 250 mls/hr IV.SIG Q12H [facility] Lactulose (Lactulose Liq) 30 ml PO DAILY PRN PRN Reason: SEVERE CONSITIPATION Miscellaneous Information ([facility] Ordered Lab Info) 0 each OTHER ONCE ONE Stop: 05/12/18 16:46 Ondansetron HCl (Zofran Inj) 4 mg IV.PUSH Q6H PRN PRN Reason: NAUSEA OR VOMITING Pharmacy Profile Note (Vancomycin Consult Pharmacy) 1 each OTHER UNSCH PRN PRN Reason: Pharmacy to dose Senna/Docusate Sodium (Cori-Colace) 1 tab PO BID [facility] Last Admin: 05/11/18 08:39 Dose: Not Given Sennosides (Senokot) 17.2 mg PO Q12H PRN PRN Reason: Moderate Constipation Allergies Allergy/AdvReac Type Severity Reaction Status Date / Time No Known Allergies Allergy Verified 05/09/18 13:47 Home Medications Medication Instructions Recorded Confirmed Type No Known Home Medications 05/09/18 05/11/18 History Exam Vital signs: Vital Signs 05/11/18 01:46 05/11/18 02:51 05/11/18 04:00 Temperature 98.7 F 99.0 F Pulse Rate 95 H 70 80 Respiratory Rate 16 16 Blood Pressure 126/73 117/58 L Pulse Oximetry 99 100 99 05/11/18 05:16 05/11/18 08:00 Temperature 97.8 F Pulse Rate 68 Respiratory Rate 20 14 Blood Pressure 112/55 L Pulse Oximetry 98 Intake & Output 05/10/18 05/11/18 05/11/18 18:59 06:59 18:59 Intake Total 1550 / 1550 Balance 1550 / 1550 Weight 96 kg Intake: IV 1550 / 1550 Zosyn 3.375 GM Premix 50 ML @ 50 / 50 100 mls/hr IV.SIG ONCE ONE Rx#: [id number] NS Inj 1,000 ML @ Wide Open IV. 1000 / 1000 SIG BOLUS ONE Rx#:[id number] Vancomycin Inj 1,000 MG In NS 500 / 500 Inj 250 ML @ 250 mls/hr IV.SIG ONCE ONE Rx#:[id number] Other: # Voids 2 Narrative: GENERAL: This is a well-nourished, well-developed patient, in no apparent distress. CARDIOVASCULAR: Regular rate and rhythm without murmurs, gallops, or rubs. RESPIRATORY: Clear to auscultation. Breath sounds equal bilaterally. No wheezes , rales, or rhonchi. GASTROINTESTINAL: Abdomen soft, non-tender, nondistended. Normal active bowel sounds MUSCULOSKELETAL: Left knee edema and mechanical stitches in place. NEURO: Alert & Oriented x4 to person, place, time, situation. Moves all ext x4 Results - Labs CBC & Chem 7: 05/11/18 02:54 05/11/18 02:54 Labs: Laboratory Results - last 24 hr 05/11/18 05/11/18 05/11/18 02:54 02:54 02:54 WBC 9.2 RBC 4.37 L Hgb 13.2 Hct 38.2 L MCV 87.3 MCH 30.2 MCHC 34.6 RDW 17.2 Plt Count 521 H MPV 7.7 Neut % (Auto) 59.8 Lymph % (Auto) 22.1 [place] % (Auto) 17.0 H Eos % (Auto) 0.7 Baso % (Auto) 0.4 Neut # (Auto) 5.5 Lymph # (Auto) 2.0 [place] # (Auto) 1.6 H Eos # (Auto) 0.1 Baso # (Auto) 0.0 WBC Differential . Differential Comment Auto diff final ESR 57 H PT 11.9 H INR 1.2 APTT 33.6 H Sodium Potassium Chloride Carbon Dioxide Anion Gap BUN Creatinine Estimated GFR Random Glucose Lactic Acid Calcium Magnesium Total Bilirubin AST ALT Alkaline Phosphatase C-Reactive Protein Total Protein Albumin 05/11/18 05/11/18 02:54 02:54 WBC RBC Hgb Hct MCV MCH MCHC RDW Plt Count MPV Neut % (Auto) Lymph % (Auto) [place] % (Auto) Eos % (Auto) Baso % (Auto) Neut # (Auto) Lymph # (Auto) [place] # (Auto) Eos # (Auto) Baso # (Auto) WBC Differential Differential Comment ESR PT INR APTT Sodium 136 Potassium 4.2 Chloride 98 Carbon Dioxide 27.3 Anion Gap 11 BUN 27 H Creatinine 1.14 Estimated GFR 72 L Random Glucose 82 Lactic Acid 0.7 Calcium 8.7 Magnesium 2.4 Total Bilirubin 0.5 AST 30 ALT 29 Alkaline Phosphatase 87 C-Reactive Protein 14.40 H Total Protein 8.5 H Albumin 3.3 L - Imaging Impressions Chest X-Ray 05/11/18 02:51 CONCLUSION: Mildly underinflated examination without an acute cardiopulmonary abnormality identified. Venous Doppler Study 05/11/18 02:56 CONCLUSION: No venous thrombosis is identified in the left lower extremity. Caprini VTE Risk Assessment Caprini VTE Risk Assessment: Moderate/High Risk (score >= 2) VTE Mechanical Exception: LE injury/wound Caprini Risk Assessment Model: Point Value = 1 Point Value = 2 Point Value = 3 Point Value = 5 Age 41-60 Minor surgery BMI > 25 kg/m2 Swollen legs Varicose veins or History of unexplained or recurrent spontaneous Oral contraceptives or hormone replacement Sepsis (< 1 month) Serious lung disease, including pneumonia (< 1 month) Abnormal pulmonary function Acute myocardial infarction Congestive heart failure (< 1 month) History of inflammatory bowel disease Medical patient at bed rest Age 61-74 Arthroscopic surgery Major open surgery (> 45 min) Laparoscopic surgery (> 45 min) Malignancy Confined to bed (> 72 hours) Immobilizing plaster cast Central venous access Age >= 75 History of VTE Family history of VTE Factor V Leiden Prothrombin [id number] Lupus anticoagulant Anticardiolipin antibodies Elevated serum homocysteine Heparin-induced thrombocytopenia Other congenital or acquired thrombophilia Stroke (< 1 month) Elective arthroplasty Hip, pelvis, or leg fracture Acute spinal cord injury (< 1 month) Prophylaxis Regimen: Total Risk Factor Score Risk Level Prophylaxis Regimen 0-1 Low Early ambulation 2 Moderate Order ONE of the following: *Sequential Compression Device (SCD) *Heparin 5000 units SQ BID 3-4 Higher Order ONE of the following medications: *Heparin 5000 units SQ TID *Enoxaparin/Lovenox 40 mg SQ daily (WT < 150 kg, CrCl > 30 mL/min) *Enoxaparin/Lovenox 30 mg SQ daily (WT < 150 kg, CrCl > 10-29 mL/min) *Enoxaparin/Lovenox 30 mg SQ BID (WT < 150 kg, CrCl > 30 mL/min) AND/OR *Sequential Compression Device (SCD) 5 or more Highest Order ONE of the following medications: *Heparin 5000 units SQ TID (Preferred with Epidurals) *Enoxaparin/Lovenox 40 mg SQ daily (WT < 150 kg, CrCl > 30 mL/min) *Enoxaparin/Lovenox 30 mg SQ daily (WT < 150 kg, CrCl > 10-29 mL/min) *Enoxaparin/Lovenox 30 mg SQ BID (WT < 150 kg, CrCl > 30 mL/min) AND *Sequential Compression Device (SCD) Assessment and Plan - Plan Left Septic Knee status post I and D last week at [facility] continue with swelling of the left knee significant fluctuation and tenderness over incision, 1) Left Septic knee s/p I&D last week by [facility], Left lower extremity US no DVT. Sed rate elevated. -WBAT -work on ROM -Abx Zosyn and Vancomycin -will likely require repeat I&D of left knee. possibly tomorrow -npo after MN -consents on chart 2. Tobacco dependence strongly recommended to stop smoking. 3. IV Drug abuse by history strongly recommended to stop behavior. Code Status: Full code. Discussed Condition With: Patient and nurse Discharge Planning: Expected once cleared by orthopedic Surgery.
[2018-05-11] MEDS: Vancomycin Inj 1,500 MG in Sodium Chlor 0.9% Inj 500 ML IV.SIG SCH (17:17)
[2018-05-12] MEDS: Sod Chloride 0.9% Inj 1,000 ML IV.CONT SCH ×3 (00:19→20:24)
[2018-05-12] MEDS: Piperacil/Tazo 4.5 GM Premix 4.5 GM/100 ML BAG IV.SIG SCH ×4 (03:42→21:29)
[2018-05-12] MEDS: Vancomycin Inj 1,500 MG in Sodium Chlor 0.9% Inj 500 ML IV.SIG SCH ×2 (05:13→20:16)
[2018-05-12] MEDS: Senna/Docusate Sodium 8.6/50 MG Tablet PO SCH ×2 (08:56→20:24)
--- NOTE | 2018-05-12 11:16 | P.PN ---
Subjective Interval history: This is a pleasant 37 y/o Male who presents to the [facility] emergency department with a history of left knee pain that began in April. He has been diagnosed with septic arthritis of the left knee and was admitted to [facility] from April 23 - May 08 status post arthrotomy with irrigation and debridement by Dr. Chun. The patient left that facility AGAINST MEDICAL ADVICE and then came to this facility. He reports that he was unhappy with the care at that facility. The patient was admitted to the hospital for 1 day and then, he left AMA from the hospital again. He reports that he left AMA due to wanting to take a shower. The patient reports that when he went home yesterday evening he had a fever with a T-max of 104.3. He reports that he has noticed increased swelling of his left leg. He is unsure whether he has been checked for a blood clot in that extremity. He reports that he did take Keflex and clindamycin and that he had leftover from a prior prescription. He denies having any chest pain, chest pressure, or shortness of breath. 05/12: Seen in his bedroom, will go for procedure today, no nausea, vomit or diarrhea. Physical Exam Vital signs: Vital Signs 05/11/18 12:00 05/11/18 16:00 05/11/18 20:00 Temperature 97.4 F L 97.5 F L 97.7 F Pulse Rate 69 78 87 Respiratory Rate 16 18 18 Blood Pressure 115/60 125/56 L 121/57 L Pulse Oximetry 100 98 96 05/12/18 00:00 05/12/18 04:00 05/12/18 10:20 Temperature 98.6 F 97.9 F 97.6 F Pulse Rate 78 70 73 Respiratory Rate 18 18 17 Blood Pressure 128/57 L 134/60 149/67 H Pulse Oximetry 97 98 99 Intake & Output 05/11/18 05/12/18 05/12/18 18:59 06:59 18:59 Intake Total 3400 / 3400 1835 / 1835 1615 / 1615 Output Total 700 / 700 Balance 3400 / 3400 1135 / 1135 1615 / 1615 Weight 93 kg Intake: IV 1200 / 1200 1715 / 1715 1615 / 1615 NS Inj 1,000 ML @ 100 mls/hr IV 1000 / 1000 1000 / 1000 1000 / 1000 .CONT .Q10H [facility] Rx#:[id number] Zosyn 4.5 GM Premix 4.5 gm In 200 / 200 200 / 200 100 / 100 100 ml @ 200 mls/hr IV.SIG Q6H [facility] Rx#:[id number] Vancomycin Inj 1,500 MG In NS 515 / 515 515 / 515 Inj 500 ML @ 250 mls/hr IV.SIG Q12H [facility] Rx#:[id number] Oral 2200 / 2200 120 / 120 Output: Urine 700 / 700 Other: # Voids 4 Narrative: GENERAL: This is a well-nourished, well-developed patient, in no apparent distress. CARDIOVASCULAR: Regular rate and rhythm without murmurs, gallops, or rubs. RESPIRATORY: Clear to auscultation. Breath sounds equal bilaterally. No wheezes , rales, or rhonchi. GASTROINTESTINAL: Abdomen soft, non-tender, nondistended. Normal active bowel sounds MUSCULOSKELETAL: Left knee edema and mechanical stitches in place. NEURO: Alert & Oriented x4 to person, place, time, situation. Moves all ext x4 Results - Labs CBC & Chem 7: 05/12/18 20:12 05/12/18 20:12 Microbiology 05/11/18 02:54 Blood - Peripheral Aerobic Blood Culture - Preliminary No growth in 1 day 05/11/18 02:54 Blood - Peripheral Anaerobic Blood Culture - Preliminary No growth in 1 day 05/11/18 02:49 Blood - Peripheral Aerobic Blood Culture - Preliminary No growth in 1 day 05/11/18 02:49 Blood - Peripheral Anaerobic Blood Culture - Preliminary No growth in 1 day - Procedures Operative Report Patient Name: Teodoro Ross Date of : 78 Patient Status: Observation Attending Provider: Chito Bautista Date: 05/12/18 16:05 Initialization Date: 05/12/18 16:05 - Preoperative Diagnosis (1) Septic arthritis of knee, left Anesthesia: GETA Surgeon: Jaiden Chun MD Electrical Engineer: Cristo Breaux PA-C The surgical procedure was assisted by my physician railways assistant. My P.A. presence was necessary throughout this case for the manipulation and positioning of the surgical extremity. My P.A. was assisting me throughout the duration of this procedure. The skill set of a physician railways assistant was medically necessary to complete this procedure. During the surgical case the surgical technician was working at the back table and the physician railways assistant was directly assisting me. Operation and Findings: Patient was seen and evaluated preoperatively. Patient was found to have infection of the left knee joint. Knee effusion and erythema were noted. He recently had irrigation debridement of his left knee approximately 1 week ago at [facility]. He left the hospital AMA and presented to [facility] where he was admitted. Informed consent was obtained after detailed discussion of risk and benefits of surgery. Operative site was marked. Patient was brought to the operating room. IV sedation and GETA were administered by anesthesiologist. Operative leg was prepped with alcohol followed by Hibiclens and draped in usual sterile fashion. Timeout procedure was performed. Procedure began with a 4 cm incision over the lateral knee through the previous incision. Subcutaneous tissue dissected with Bovie. Iliotibial band was opened in line with fibers. The joint was now opened through arthrotomy. A large volume of purulent fluid was found within the knee. Specimen was obtained for cultures and sensitivities. The knee joint was manipulated. The knee joint was palpated and loculations were manually debrided. A portion of the synovium was excised. After excisional debridement was complete, the wound was thoroughly irrigated with sterile saline. At this point the wound was clean. Capsule was closed with #1 PDS, Subcutaneous tissues closed with 3-0 PDS and skin was closed with 3-0 nylon. A KIRBY drain was placed into the wound. Sterile dressings were applied. Patient was awakened and transferred to recovery in stable condition. Needle and sponge counts were correct Additional CC's: Jaiden Chun Assessment and Plan - Plan Left Septic Knee status post I and D last week at [facility] continue with swelling of the left knee significant fluctuation and tenderness over incision, 1) Left Septic knee s/p I&D last week by [facility], Left lower extremity US no DVT. Sed rate elevated. -WBAT -work on ROM -Abx Zosyn and Vancomycin -will likely require repeat I&D of left knee. later today. -continue Pain medicine. 2. Tobacco dependence strongly recommended to stop smoking. 3. IV Drug abuse by history strongly recommended to stop behavior. DVT prophylaxis with SCDs awaiting for procedure. Code Status: Full code. Discussed Condition With: patient and nurse Miss Gustafson. Discharge Planning: Expected once cleared by orthopedic Surgery.
[2018-05-12] MEDS ORDERED: fentaNYL Citrate Inj 100 MCG/2 ML Ampul ONE ×2 (13:18→16:27)
[2018-05-12] MEDS ORDERED: Famotidine PF Inj 20 MG/2 ML Vial ONE (13:18)
[2018-05-12] MEDS ORDERED: Lidocaine PF 1% Inj 5 ML Syringe OTHER ONE (15:23)
[2018-05-12] MEDS ORDERED: Post-op Orders (for Pharmacy) OTHER STA (16:03)
--- NOTE | 2018-05-12 16:06 | P.OP ---
- Preoperative Diagnosis (1) Septic arthritis of knee, left Anesthesia: GETA Surgeon: Jaiden Melendrez MD Pipe Stripper: Cristo Breaux PA-C The surgical procedure was assisted by my physician human resource assistant. My P.A. presence was necessary throughout this case for the manipulation and positioning of the surgical extremity. My P.A. was assisting me throughout the duration of this procedure. The skill set of a physician human resource assistant was medically necessary to complete this procedure. During the surgical case the chief technology officer was working at the back table and the physician human resource assistant was directly assisting me. Operation and Findings: Patient was seen and evaluated preoperatively. Patient was found to have infection of the left knee joint. Knee effusion and erythema were noted. He recently had irrigation debridement of his left knee approximately 1 week ago at [facility]. He left the hospital [place] and presented to [facility] where he was admitted. Informed consent was obtained after detailed discussion of risk and benefits of surgery. Operative site was marked. Patient was brought to the operating room. IV sedation and GETA were administered by anesthesiologist. Operative leg was prepped with alcohol followed by Hibiclens and draped in usual sterile fashion. Timeout procedure was performed. Procedure began with a 4 cm incision over the lateral knee through the previous incision. Subcutaneous tissue dissected with Bovie. Iliotibial band was opened in line with fibers. The joint was now opened through arthrotomy. A large volume of purulent fluid was found within the knee. Specimen was obtained for cultures and sensitivities. The knee joint was manipulated. The knee joint was palpated and loculations were manually debrided. A portion of the synovium was excised. After excisional debridement was complete, the wound was thoroughly irrigated with sterile saline. At this point the wound was clean. Capsule was closed with #1 PDS, Subcutaneous tissues closed with 3-0 PDS and skin was closed with 3-0 nylon. A KIRBY drain was placed into the wound. Sterile dressings were applied. Patient was awakened and transferred to recovery in stable condition. Needle and sponge counts were correct
[2018-05-12] MEDS ORDERED: *morphine SULFATE 4 MG/ML PERIprocedure ONLY ONE ×2 (16:30→16:51)
[2018-05-12] MEDS ORDERED: Pharmacy Ordered Lab Info OTHER ONE (16:45)
[2018-05-12] MEDS: Morphine Inj 4 MG/ML Vial IV.PUSH PRN ×2 (20:14→22:47)
[2018-05-12 20:58] LABS: Baso % (Auto) 0.2 % (0.0-2.0); Eos % (Auto) 0.1 % (0.0-4.0); Hematocrit 38.8 % (39.0-51.0); Hemoglobin 12.9 gm/dL (13.0-17.0); Lymph # (Auto) 0.7 th/mm3 (1.0-4.8); Mean Corpuscular HGB Conc 33.1 % (32.0-36.0); Mean Corpuscular Hemoglobin 29.4 pg (27.0-34.0); Mean Corpuscular Volume 88.8 fL (80.0-100.0); Mean Platelet Volume 7.7 fL (7.0-11.0); Mono # (Auto) 0.2 th/mm3 (0.0-0.9); Mono % (Auto) 1.9 % (0.0-8.0); Neut # (Auto) 8.4 th/mm3 (1.8-7.7); Neut % (Auto) 90.8 % (16.0-70.0); Platelet Count 438 th/mm3 (150-450); Red Blood Count 4.37 mil/mm3 (4.50-5.90); Red Cell Distribution Width 16.6 % (11.6-17.2); White Blood Count 9.3 th/mm3 (4.0-11.0)
[2018-05-12 21:23] LABS: Alanine Aminotransferase 26 U/L (12-78); Albumin 2.6 g/dL (3.4-5.0); Alkaline Phosphatase 83 U/L (45-117); Anion Gap 8 meq/L (5-15); Aspartate Aminotransferase 22 U/L (15-37); Blood Urea Nitrogen 13 mg/dL (7-18); Calcium 8.5 mg/dL (8.5-10.1); Carbon Dioxide 26.3 meq/L (21.0-32.0); Chloride 104 meq/L (98-107); Glomerular Filtration Rate 77 mL/min (>89); Glucose,Random 161 mg/dL (74-106); Sodium 138 meq/L (136-145); Total Protein 7.7 g/dL (6.4-8.2)
[2018-05-13] MEDS: Morphine Inj 4 MG/ML Vial IV.PUSH PRN ×6 (01:33→22:30)
[2018-05-13] MEDS: Piperacil/Tazo 4.5 GM Premix 4.5 GM/100 ML BAG IV.SIG SCH ×5 (01:33→21:02)
[2018-05-13] MEDS: Sod Chloride 0.9% Inj 1,000 ML IV.CONT SCH ×2 (05:53→17:37)
[2018-05-13] MEDS: Vancomycin Inj 1,500 MG in Sodium Chlor 0.9% Inj 500 ML IV.SIG SCH ×3 (08:40→21:04)
--- NOTE | 2018-05-13 08:49 | P.PNOP ---
Subjective Interval history: POD 1 s.o repeat I&D of septic left knee doing well. no new changes Physical Exam Vital signs: Vital Signs 05/12/18 10:20 05/12/18 16:17 05/12/18 16:20 Temperature 97.6 F 97.4 F L Pulse Rate 73 63 Respiratory Rate 17 14 Blood Pressure 149/67 H 137/74 Pulse Oximetry 99 100 100 05/12/18 16:30 05/12/18 16:45 05/12/18 17:00 Temperature 97.3 F L Pulse Rate 58 L 58 L 58 L Respiratory Rate 16 17 18 Blood Pressure 158/85 H 145/81 H 157/87 H Pulse Oximetry 100 96 99 05/13/18 00:00 05/13/18 04:00 Temperature 97.3 F L 97.3 F L Pulse Rate 66 64 Respiratory Rate 18 Blood Pressure 133/60 117/62 Pulse Oximetry 98 98 Intake & Output 05/12/18 05/13/18 05/13/18 18:59 06:59 18:59 Intake Total 2315 / 2315 615 / 615 Output Total 820 / 820 55 / 55 Balance 1495 / 1495 560 / 560 Weight 92.6 kg Intake: IV 1715 / 1715 615 / 615 NS Inj 1,000 ML @ 100 mls/hr IV 1000 / 1000 .CONT .Q10H [facility] Rx#:[id number] Zosyn 4.5 GM Premix 4.5 gm In 200 / 200 100 / 100 100 ml @ 200 mls/hr IV.SIG Q6H [facility] Rx#:[id number] Vancomycin Inj 1,500 MG In NS 515 / 515 515 / 515 Inj 500 ML @ 250 mls/hr IV.SIG Q12H [facility] Rx#:[id number] Anesthesia Amount 600 / 600 Output: Urine 775 / 775 Estimated Blood Loss 20 / 20 Wound Drainage 55 / 55 # 1 Left Knee KIRBY Drain 55 / 55 Narrative: LLE: dressings clean and dry. intact. NVI distally. 1+ swelling of lower leg. + drain Results - Labs CBC & Chem 7: 05/12/18 20:12 05/12/18 20:12 Laboratory Results - last 24 hr 05/12/18 05/12/18 05/12/18 20:12 20:12 20:12 WBC 9.3 RBC 4.37 L Hgb 12.9 L Hct 38.8 L MCV 88.8 MCH 29.4 MCHC 33.1 RDW 16.6 Plt Count 438 MPV 7.7 Neut % (Auto) 90.8 H Lymph % (Auto) 7.0 L [place] % (Auto) 1.9 Eos % (Auto) 0.1 Baso % (Auto) 0.2 Neut # (Auto) 8.4 H Lymph # (Auto) 0.7 L [place] # (Auto) 0.2 Eos # (Auto) 0.0 Baso # (Auto) 0.0 WBC Differential . Differential Comment Auto diff final Sodium 138 Potassium 4.0 Chloride 104 Carbon Dioxide 26.3 Anion Gap 8 BUN 13 Creatinine 1.08 Estimated GFR 77 L Random Glucose 161 H Calcium 8.5 Total Bilirubin 0.2 AST 22 ALT 26 Alkaline Phosphatase 83 Total Protein 7.7 D Albumin 2.6 L D Vancomycin Trough 15.2 H Microbiology 05/11/18 02:54 Blood - Peripheral Aerobic Blood Culture - Preliminary No growth in 1 day 05/11/18 02:54 Blood - Peripheral Anaerobic Blood Culture - Preliminary No growth in 1 day 05/11/18 02:49 Blood - Peripheral Aerobic Blood Culture - Preliminary No growth in 1 day 05/11/18 02:49 Blood - Peripheral Anaerobic Blood Culture - Preliminary No growth in 1 day Assessment and Plan - Assessment and Plan 1) Left Septic knee s/p I&D - POD 1 -WBAT -work on ROM -awaiting repeat cutures -has previous cultures at [facility]. was unable to access system today as had network issues. will attempt to access later. -infectious Dz consult for IV Abx
[2018-05-13] MEDS: Senna/Docusate Sodium 8.6/50 MG Tablet PO SCH ×2 (09:41→21:04)
--- NOTE | 2018-05-13 11:56 | P.PN ---
Subjective Interval history: This is a pleasant 37 y/o Male who presents to the [facility] emergency department with a history of left knee pain that began in April. He has been diagnosed with septic arthritis of the left knee and was admitted to [facility] from April 23 - May 08 status post arthrotomy with irrigation and debridement by Dr. Melendrez. The patient left that facility AGAINST MEDICAL ADVICE and then came to this facility. He reports that he was unhappy with the care at that facility. The patient was admitted to the hospital for 1 day and then, he left AMA from the hospital again. He reports that he left AMA due to wanting to take a shower. The patient reports that when he went home yesterday evening he had a fever with a T-max of 104.3. He reports that he has noticed increased swelling of his left leg. He is unsure whether he has been checked for a blood clot in that extremity. He reports that he did take Keflex and clindamycin and that he had leftover from a prior prescription. He denies having any chest pain, chest pressure, or shortness of breath. 05/12: Seen in his bedroom, will go for procedure today. 05/13: Status post I and D performed yesterday, Hemovac in place, asked for ID specialist consult by Orthopedic assurance specialist, no nausea, vomit or diarrhea, the patient wanted to take his drain off and his IV line off, was explained to him the danger for him to play with his left knee infection, explained he may lose his limb, the patient states that will wait until been discharged by specialists, ordered nicotine patch to avoid craving from Tobacco. Physical Exam Vital signs: Vital Signs 05/12/18 16:17 05/12/18 16:20 05/12/18 16:30 Temperature 97.4 F L Pulse Rate 63 58 L Respiratory Rate 14 16 Blood Pressure 137/74 158/85 H Pulse Oximetry 100 100 100 05/12/18 16:45 05/12/18 17:00 05/13/18 00:00 Temperature 97.3 F L 97.3 F L Pulse Rate 58 L 58 L 66 Respiratory Rate 17 18 18 Blood Pressure 145/81 H 157/87 H 133/60 Pulse Oximetry 96 99 98 05/13/18 04:00 05/13/18 08:00 Temperature 97.3 F L 97.5 F L Pulse Rate 64 66 Respiratory Rate 18 Blood Pressure 117/62 145/79 H Pulse Oximetry 98 99 Intake & Output 05/12/18 05/13/18 05/13/18 18:59 06:59 18:59 Intake Total 2315 / 2315 615 / 615 100 / 100 Output Total 820 / 820 55 / 55 Balance 1495 / 1495 560 / 560 100 / 100 Weight 92.6 kg Intake: IV 1715 / 1715 615 / 615 100 / 100 NS Inj 1,000 ML @ 100 mls/hr IV 1000 / 1000 .CONT .Q10H TERRY Rx#:[id number] Zosyn 4.5 GM Premix 4.5 gm In 200 / 200 100 / 100 100 / 100 100 ml @ 200 mls/hr IV.SIG Q6H TERRY Rx#:[id number] Vancomycin Inj 1,500 MG In NS 515 / 515 515 / 515 Inj 500 ML @ 250 mls/hr IV.SIG Q12H TERRY Rx#:[id number] Anesthesia Amount 600 / 600 Output: Urine 775 / 775 Estimated Blood Loss Wound Drainage 55 / 55 # 1 Left Knee KIRBY Drain Narrative: GENERAL: This is a well-nourished, well-developed patient, in no apparent distress. CARDIOVASCULAR: Regular rate and rhythm without murmurs, gallops, or rubs. RESPIRATORY: Clear to auscultation. Breath sounds equal bilaterally. No wheezes , rales, or rhonchi. GASTROINTESTINAL: Abdomen soft, non-tender, nondistended. Normal active bowel sounds MUSCULOSKELETAL: Left knee dressed, Hemovac in place. NEURO: Alert & Oriented x4 to person, place, time, situation. Moves all ext x4 Results - Labs CBC & Chem 7: 05/12/18 20:12 05/12/18 20:12 Laboratory Results - last 24 hr 05/12/18 05/12/18 05/12/18 20:12 20:12 20:12 WBC 9.3 RBC 4.37 L Hgb 12.9 L Hct 38.8 L MCV 88.8 MCH 29.4 MCHC 33.1 RDW 16.6 Plt Count 438 MPV 7.7 Neut % (Auto) 90.8 H Lymph % (Auto) 7.0 L [place] % (Auto) 1.9 Eos % (Auto) 0.1 Baso % (Auto) 0.2 Neut # (Auto) 8.4 H Lymph # (Auto) 0.7 L [place] # (Auto) 0.2 Eos # (Auto) 0.0 Baso # (Auto) 0.0 WBC Differential . Differential Comment Auto diff final Sodium 138 Potassium 4.0 Chloride 104 Carbon Dioxide 26.3 Anion Gap 8 BUN 13 Creatinine 1.08 Estimated GFR 77 L Random Glucose 161 H Calcium 8.5 Total Bilirubin 0.2 AST 22 ALT 26 Alkaline Phosphatase 83 Total Protein 7.7 D Albumin 2.6 L D Vancomycin Trough 15.2 H Microbiology 05/11/18 02:54 Blood - Peripheral Aerobic Blood Culture - Preliminary No growth in 2 days 05/11/18 02:54 Blood - Peripheral Anaerobic Blood Culture - Preliminary No growth in 2 days 05/11/18 02:49 Blood - Peripheral Aerobic Blood Culture - Preliminary No growth in 2 days 05/11/18 02:49 Blood - Peripheral Anaerobic Blood Culture - Preliminary No growth in 2 days 05/12/18 15:58 Fluid - Synovial Fluid Fungal Smear - Final No fungal elements seen 05/12/18 15:58 Fluid - Synovial Fluid Gram Stain - Final 05/12/18 15:57 Fluid - Synovial Fluid Fungal Smear - Final No fungal elements seen 05/12/18 15:57 Fluid - Synovial Fluid Gram Stain - Final - Procedures - Preoperative Diagnosis (1) Septic arthritis of knee, left Anesthesia: GETA Surgeon: Jaiden Melendrez MD Student Support Counselor: Cristo Breaux PA-C The surgical procedure was assisted by my physician wet process miller head assistant. My P.A. presence was necessary throughout this case for the manipulation and positioning of the surgical extremity. My P.A. was assisting me throughout the duration of this procedure. The skill set of a physician wet process miller head assistant was medically necessary to complete this procedure. During the surgical case the rn neurosurgical was working at the back table and the physician wet process miller head assistant was directly assisting me. Operation and Findings: Patient was seen and evaluated preoperatively. Patient was found to have infection of the left knee joint. Knee effusion and erythema were noted. He recently had irrigation debridement of his left knee approximately 1 week ago at [facility]. He left the hospital AMA and presented to [place] where he was admitted. Informed consent was obtained after detailed discussion of risk and benefits of surgery. Operative site was marked. Patient was brought to the operating room. IV sedation and GETA were administered by anesthesiologist. Operative leg was prepped with alcohol followed by Hibiclens and draped in usual sterile fashion. Timeout procedure was performed. Procedure began with a 4 cm incision over the lateral knee through the previous incision. Subcutaneous tissue dissected with Bovie. Iliotibial band was opened in line with fibers. The joint was now opened through arthrotomy. A large volume of purulent fluid was found within the knee. Specimen was obtained for cultures and sensitivities. The knee joint was manipulated. The knee joint was palpated and loculations were manually debrided. A portion of the synovium was excised. After excisional debridement was complete, the wound was thoroughly irrigated with sterile saline. At this point the wound was clean. Capsule was closed with #1 PDS, Subcutaneous tissues closed with 3-0 PDS and skin was closed with 3-0 nylon. A KIRBY drain was placed into the wound. Sterile dressings were applied. Patient was awakened and transferred to recovery in stable condition. Needle and sponge counts were correct Additional CC's: Jaiden Melendrez Assessment and Plan - Plan Left Septic Knee status post I and D last week at [facility] continue with swelling of the left knee significant fluctuation and tenderness over incision, 1) Left Septic knee s/p I&D last week by [facility], Left lower extremity US no DVT. Sed rate elevated. -WBAT -work on ROM -Abx Zosyn and Vancomycin -will likely require repeat I&D of left knee performed, yesterday and Hemovac in place asked for ID specialist as recommended by Orthopedic Surgery. adjusted pain medicines. 2. Tobacco dependence strongly recommended to stop smoking. Nicotine patch started, he has refused in the past 3. IV Drug abuse by history strongly recommended to stop behavior. DVT prophylaxis with SCDs awaiting for procedure. Code Status: Full code. Discussed Condition With: Discussed with Utilization Review Miss Moura and Meets inpatient criteria Discharge Planning: Expected once cleared by orthopedic Surgery and ID specialist.
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
[2018-05-14] MEDS: Morphine Inj 4 MG/ML Vial IV.PUSH PRN ×5 (01:53→21:29)
[2018-05-14] MEDS: Piperacil/Tazo 4.5 GM Premix 4.5 GM/100 ML BAG IV.SIG SCH ×4 (01:59→20:23)
[2018-05-14] MEDS: Sod Chloride 0.9% Inj 1,000 ML IV.CONT SCH ×3 (02:01→23:19)
--- NOTE | 2018-05-14 07:06 | P.PNOP ---
Subjective Interval history: POD 2 s/p I&D left knee reports pain. no real changes or new complaints. Physical Exam Vital signs: Vital Signs 05/13/18 08:00 05/13/18 12:00 05/13/18 16:00 Temperature 97.5 F L 97.8 F 98 F Pulse Rate 66 65 71 Respiratory Rate 18 18 18 Blood Pressure 145/79 H 135/59 L 126/60 Pulse Oximetry 99 98 98 05/13/18 20:00 05/14/18 00:00 Temperature 98.1 F 97.4 F L Pulse Rate 77 66 Respiratory Rate 17 18 Blood Pressure 128/63 115/84 Pulse Oximetry 99 97 Intake & Output 05/13/18 05/14/18 05/14/18 18:59 06:59 18:59 Intake Total 3155 / 3155 1415 / 1415 Balance 3155 / 3155 1415 / 1415 Weight 92.6 kg 95.2 kg Intake: IV 1715 / 1715 1015 / 1015 LR 1000 mL Inj 1,000 ML @ 60 1000 / 1000 mls/hr IV.CONT .[id number] TERRY Rx# :[id number] NS Inj 1,000 ML @ 100 mls/hr IV 300 / 300 .CONT .Q10H TERRY Rx#:[id number] Zosyn 4.5 GM Premix 4.5 gm In 200 / 200 200 / 200 100 ml @ 200 mls/hr IV.SIG Q6H TERRY Rx#:[id number] Vancomycin Inj 1,500 MG In NS 515 / 515 515 / 515 Inj 500 ML @ 250 mls/hr IV.SIG Q12H TERRY Rx#:[id number] Oral 1440 / 1440 400 / 400 Other: # Voids 6 2 Narrative: LLE: dressings clean and dry. intact. +drain Results - Labs CBC & Chem 7: 05/12/18 20:12 05/12/18 20:12 Microbiology 05/12/18 15:58 Fluid - Synovial Fluid Gram Stain - Final 05/12/18 15:58 Fluid - Synovial Fluid Wound Culture - Preliminary No growth in 24 hours 05/12/18 15:57 Fluid - Synovial Fluid Gram Stain - Final 05/12/18 15:57 Fluid - Synovial Fluid Wound Culture - Preliminary No growth in 24 hours 05/11/18 02:54 Blood - Peripheral Aerobic Blood Culture - Preliminary No growth in 2 days 05/11/18 02:54 Blood - Peripheral Anaerobic Blood Culture - Preliminary No growth in 2 days 05/11/18 02:49 Blood - Peripheral Aerobic Blood Culture - Preliminary No growth in 2 days 05/11/18 02:49 Blood - Peripheral Anaerobic Blood Culture - Preliminary No growth in 2 days 05/12/18 15:58 Fluid - Synovial Fluid Fungal Smear - Final No fungal elements seen 05/12/18 15:57 Fluid - Synovial Fluid Fungal Smear - Final No fungal elements seen - Procedures - Preoperative Diagnosis (1) Septic arthritis of knee, left Anesthesia: GETA Surgeon: Jaiden Melendrez MD Automobile Sales Representative: Cristo Breaux PA-C The surgical procedure was assisted by my physician orthodontist assistant. My P.A. presence was necessary throughout this case for the manipulation and positioning of the surgical extremity. My P.A. was assisting me throughout the duration of this procedure. The skill set of a physician orthodontist assistant was medically necessary to complete this procedure. During the surgical case the surgical first assistant was working at the back table and the physician orthodontist assistant was directly assisting me. Operation and Findings: Patient was seen and evaluated preoperatively. Patient was found to have infection of the left knee joint. Knee effusion and erythema were noted. He recently had irrigation debridement of his left knee approximately 1 week ago at [facility]. He left the hospital AM and presented to [facility] where he was admitted. Informed consent was obtained after detailed discussion of risk and benefits of surgery. Operative site was marked. Patient was brought to the operating room. IV sedation and GETA were administered by anesthesiologist. Operative leg was prepped with alcohol followed by Hibiclens and draped in usual sterile fashion. Timeout procedure was performed. Procedure began with a 4 cm incision over the lateral knee through the previous incision. Subcutaneous tissue dissected with Bovie. Iliotibial band was opened in line with fibers. The joint was now opened through arthrotomy. A large volume of purulent fluid was found within the knee. Specimen was obtained for cultures and sensitivities. The knee joint was manipulated. The knee joint was palpated and loculations were manually debrided. A portion of the synovium was excised. After excisional debridement was complete, the wound was thoroughly irrigated with sterile saline. At this point the wound was clean. Capsule was closed with #1 PDS, Subcutaneous tissues closed with 3-0 PDS and skin was closed with 3-0 nylon. A KIRBY drain was placed into the wound. Sterile dressings were applied. Patient was awakened and transferred to recovery in stable condition. Needle and sponge counts were correct Additional CC's: Jaiden Melendrez Assessment and Plan - Assessment and Plan 1) Left Septic knee s/p I&D - POD 2 -WBAT -work on ROM -awaiting repeat cultures -has previous cultures at [facility]. Gram Stain and fungal from 05/03 is negative for organisms. shows many WBCs. -infectious Dz consult for IV Abx
[2018-05-14] MEDS ORDERED: Pharmacy Ordered Lab Info OTHER ONE (07:45)
[2018-05-14] MEDS: Senna/Docusate Sodium 8.6/50 MG Tablet PO SCH ×2 (08:26→20:27)
[2018-05-14] MEDS: Vancomycin Inj 1,500 MG in Sodium Chlor 0.9% Inj 500 ML IV.SIG SCH ×2 (10:36→20:22)
[2018-05-14 11:51] LABS: Vancomycin,Trough 15.5 mcg/mL (5.0-10.0)
--- NOTE | 2018-05-14 11:52 | P.PN ---
Subjective Interval history: This is a pleasant 37 y/o Male who presents to the [facility] emergency department with a history of left knee pain that began in April. He has been diagnosed with septic arthritis of the left knee and was admitted to [facility] from April 23 - May 08 status post arthrotomy with irrigation and debridement by Dr. Melendrez. The patient left that facility AGAINST MEDICAL ADVICE and then came to this facility. He reports that he was unhappy with the care at that facility. The patient was admitted to the hospital for 1 day and then, he left AMA from the hospital again. He reports that he left AMA due to wanting to take a shower. The patient reports that when he went home yesterday evening he had a fever with a T-max of 104.3. He reports that he has noticed increased swelling of his left leg. He is unsure whether he has been checked for a blood clot in that extremity. He reports that he did take Keflex and clindamycin and that he had leftover from a prior prescription. He denies having any chest pain, chest pressure, or shortness of breath. 05/12: Seen in his bedroom, will go for procedure today. 05/13: Status post I and D performed yesterday, Hemovac in place, asked for ID specialist consult by Orthopedic recruiter specialist, no nausea, vomit or diarrhea, the patient wanted to take his drain off and his IV line off, was explained to him the danger for him to play with his left knee infection, explained he may lose his limb, the patient states that will wait until been discharged by specialists, ordered nicotine patch to avoid craving from Tobacco. 05/14: today POD #2, WBAT, work ROM, Waiting repeat cultures, as per ID specialist to continue Zosyn and Vancomycin No nausea, vomit or diarrhea. Physical Exam Vital signs: Vital Signs 05/13/18 12:00 05/13/18 16:00 05/13/18 20:00 Temperature 97.8 F 98 F 98.1 F Pulse Rate 65 71 77 Respiratory Rate 18 18 17 Blood Pressure 135/59 L 126/60 128/63 Pulse Oximetry 98 98 99 05/14/18 00:00 05/14/18 08:00 Temperature 97.4 F L 97.7 F Pulse Rate 66 68 Respiratory Rate 18 17 Blood Pressure 115/84 106/59 L Pulse Oximetry 97 97 Intake & Output 05/13/18 05/14/18 05/14/18 18:59 06:59 18:59 Intake Total 3155 / 3155 1415 / 1415 100 / 100 Output Total 30 / 30 Balance 3155 / 3155 1415 / 1415 70 / 70 Weight 92.6 kg 95.2 kg Intake: IV 1715 / 1715 1015 / 1015 100 / 100 LR 1000 mL Inj 1,000 ML @ 60 1000 / 1000 mls/hr IV.CONT .[id number] TERRY Rx# :[id number] NS Inj 1,000 ML @ 100 mls/hr IV 300 / 300 .CONT .Q10H TERRY Rx#:[id number] Zosyn 4.5 GM Premix 4.5 gm In 200 / 200 200 / 200 100 / 100 100 ml @ 200 mls/hr IV.SIG Q6H TERRY Rx#:[id number] Vancomycin Inj 1,500 MG In NS 515 / 515 515 / 515 Inj 500 ML @ 250 mls/hr IV.SIG Q12H TERRY Rx#:[id number] Oral 1440 / 1440 400 / 400 Output: Wound Drainage # 1 Left Knee KIRBY Drain Other: # Voids 6 2 Narrative: GENERAL: This is a well-nourished, well-developed patient, in no apparent distress. CARDIOVASCULAR: Regular rate and rhythm without murmurs, gallops, or rubs. RESPIRATORY: Clear to auscultation. Breath sounds equal bilaterally. No wheezes , rales, or rhonchi. GASTROINTESTINAL: Abdomen soft, non-tender, nondistended. Normal active bowel sounds MUSCULOSKELETAL: Left knee dressed, Hemovac in place. NEURO: Alert & Oriented x4 to person, place, time, situation. Moves all ext x4 Results - Labs CBC & Chem 7: 05/12/18 20:12 05/14/18 10:08 Microbiology 05/11/18 02:49 Blood - Peripheral Aerobic Blood Culture - Preliminary gram positive cocci 05/11/18 02:49 Blood - Peripheral Anaerobic Blood Culture - Preliminary No growth in 3 days 05/12/18 15:58 Fluid - Synovial Fluid Gram Stain - Final 05/12/18 15:58 Fluid - Synovial Fluid Wound Culture - Preliminary No growth in 48 hours 05/12/18 15:57 Fluid - Synovial Fluid Gram Stain - Final 05/12/18 15:57 Fluid - Synovial Fluid Wound Culture - Preliminary No growth in 48 hours 05/11/18 02:54 Blood - Peripheral Aerobic Blood Culture - Preliminary No growth in 3 days 05/11/18 02:54 Blood - Peripheral Anaerobic Blood Culture - Preliminary No growth in 3 days 05/12/18 15:58 Fluid - Synovial Fluid Fungal Smear - Final No fungal elements seen 05/12/18 15:57 Fluid - Synovial Fluid Fungal Smear - Final No fungal elements seen - Procedures - Preoperative Diagnosis (1) Septic arthritis of knee, left Anesthesia: GETA Surgeon: Jaiden Melendrez MD Insulation Batting Machine Operator: Cristo Breaux PA-C The surgical procedure was assisted by my physician medical assistant instructor. My P.A. presence was necessary throughout this case for the manipulation and positioning of the surgical extremity. My P.A. was assisting me throughout the duration of this procedure. The skill set of a physician medical assistant instructor was medically necessary to complete this procedure. During the surgical case the surgical consultant was working at the back table and the physician medical assistant instructor was directly assisting me. Operation and Findings: Patient was seen and evaluated preoperatively. Patient was found to have infection of the left knee joint. Knee effusion and erythema were noted. He recently had irrigation debridement of his left knee approximately 1 week ago at [facility]. He left the hospital AMA and presented to [place] where he was admitted. Informed consent was obtained after detailed discussion of risk and benefits of surgery. Operative site was marked. Patient was brought to the operating room. IV sedation and GETA were administered by anesthesiologist. Operative leg was prepped with alcohol followed by Hibiclens and draped in usual sterile fashion. Timeout procedure was performed. Procedure began with a 4 cm incision over the lateral knee through the previous incision. Subcutaneous tissue dissected with Bovie. Iliotibial band was opened in line with fibers. The joint was now opened through arthrotomy. A large volume of purulent fluid was found within the knee. Specimen was obtained for cultures and sensitivities. The knee joint was manipulated. The knee joint was palpated and loculations were manually debrided. A portion of the synovium was excised. After excisional debridement was complete, the wound was thoroughly irrigated with sterile saline. At this point the wound was clean. Capsule was closed with #1 PDS, Subcutaneous tissues closed with 3-0 PDS and skin was closed with 3-0 nylon. A KIRBY drain was placed into the wound. Sterile dressings were applied. Patient was awakened and transferred to recovery in stable condition. Needle and sponge counts were correct Additional CC's: Jaiden Melendrez Assessment and Plan - Plan Left Septic Knee status post I and D last week at [facility] continue with swelling of the left knee significant fluctuation and tenderness over incision, 1) Left Septic knee s/p I&D last week by [facility], Left lower extremity US no DVT. Sed rate elevated. status post I and D POD#2. -WBAT -work on ROM -Abx Zosyn and Vancomycin ID specialist following, recommended to continue Zosyn and Vancomycin. 2. Tobacco dependence strongly recommended to stop smoking. Nicotine patch started, he has refused in the past 3. IV Drug abuse by history strongly recommended to stop behavior. DVT prophylaxis with SCDs awaiting for procedure. Code Status: Full code. Discussed Condition With: patient and Nurse Miss Gustafson Discharge Planning: Expected once cleared by orthopedic Surgery and ID specialist.
[2018-05-15] MEDS: Morphine Inj 4 MG/ML Vial IV.PUSH PRN ×6 (00:26→21:11)
[2018-05-15] MEDS: Piperacil/Tazo 4.5 GM Premix 4.5 GM/100 ML BAG IV.SIG SCH ×2 (04:45→08:10)
--- NOTE | 2018-05-15 07:17 | P.PNOP ---
Subjective Interval history: POD 3 s/p I&D left knee resting comfortably. no changes Physical Exam Vital signs: Vital Signs 05/14/18 08:00 05/14/18 12:00 05/14/18 16:00 Temperature 97.7 F 97.2 F L 97.8 F Pulse Rate 68 65 62 Respiratory Rate 17 19 17 Blood Pressure 106/59 L 125/60 132/61 Pulse Oximetry 97 98 97 05/14/18 20:00 05/14/18 23:54 05/15/18 00:00 Temperature 97.1 F L 97.8 F Pulse Rate 82 66 Respiratory Rate 15 18 20 Blood Pressure 128/84 122/62 Pulse Oximetry 100 99 Intake & Output 05/14/18 05/15/18 05/15/18 18:59 06:59 18:59 Intake Total 1865 / 1865 2915 / 2915 Output Total 350 / 350 Balance 1515 / 1515 2915 / 2915 Weight 95.2 kg Intake: IV 715 / 715 1915 / 1915 NS Inj 1,000 ML @ 100 mls/hr IV 1200 / 1200 .CONT .Q10H TERRY Rx#:[id number] Zosyn 4.5 GM Premix 4.5 gm In 200 / 200 200 / 200 100 ml @ 200 mls/hr IV.SIG Q6H TERRY Rx#:[id number] Vancomycin Inj 1,500 MG In NS 515 / 515 515 / 515 Inj 500 ML @ 250 mls/hr IV.SIG Q12H TERRY Rx#:[id number] Oral 1150 / 1150 1000 / 1000 Output: Urine 300 / 300 Wound Drainage 50 / 50 # 1 Left Knee KIRBY Drain 50 / 50 Other: # Voids 3 6 Narrative: LLE: dressings clean and dry.intact. NVI. +drain Results - Labs CBC & Chem 7: 05/12/18 20:12 05/14/18 10:08 Laboratory Results - last 24 hr 05/14/18 10:08 Creatinine 1.01 Estimated GFR 83 L Vancomycin Trough 15.5 H Microbiology 05/12/18 15:58 Fluid - Synovial Fluid Acid Fast Bacilli Smear - Final No acid fast bacilli seen 05/12/18 15:57 Fluid - Synovial Fluid Acid Fast Bacilli Smear - Final No acid fast bacilli seen 05/11/18 02:49 Blood - Peripheral Aerobic Blood Culture - Preliminary gram positive cocci 05/11/18 02:49 Blood - Peripheral Anaerobic Blood Culture - Preliminary No growth in 3 days 05/12/18 15:58 Fluid - Synovial Fluid Gram Stain - Final 05/12/18 15:58 Fluid - Synovial Fluid Wound Culture - Preliminary No growth in 48 hours 05/12/18 15:57 Fluid - Synovial Fluid Gram Stain - Final 05/12/18 15:57 Fluid - Synovial Fluid Wound Culture - Preliminary No growth in 48 hours 05/11/18 02:54 Blood - Peripheral Aerobic Blood Culture - Preliminary No growth in 3 days 05/11/18 02:54 Blood - Peripheral Anaerobic Blood Culture - Preliminary No growth in 3 days - Procedures - Preoperative Diagnosis (1) Septic arthritis of knee, left Anesthesia: GETA Surgeon: Jaiden Melendrez MD Rn Support Services: Cristo Breaux PA-C The surgical procedure was assisted by my physician assistant curator. My P.A. presence was necessary throughout this case for the manipulation and positioning of the surgical extremity. My P.A. was assisting me throughout the duration of this procedure. The skill set of a physician assistant curator was medically necessary to complete this procedure. During the surgical case the certified surgical technician was working at the back table and the physician assistant curator was directly assisting me. Operation and Findings: Patient was seen and evaluated preoperatively. Patient was found to have infection of the left knee joint. Knee effusion and erythema were noted. He recently had irrigation debridement of his left knee approximately 1 week ago at [facility]. He left the hospital AMA and presented to [place] where he was admitted. Informed consent was obtained after detailed discussion of risk and benefits of surgery. Operative site was marked. Patient was brought to the operating room. IV sedation and GETA were administered by anesthesiologist. Operative leg was prepped with alcohol followed by Hibiclens and draped in usual sterile fashion. Timeout procedure was performed. Procedure began with a 4 cm incision over the lateral knee through the previous incision. Subcutaneous tissue dissected with Bovie. Iliotibial band was opened in line with fibers. The joint was now opened through arthrotomy. A large volume of purulent fluid was found within the knee. Specimen was obtained for cultures and sensitivities. The knee joint was manipulated. The knee joint was palpated and loculations were manually debrided. A portion of the synovium was excised. After excisional debridement was complete, the wound was thoroughly irrigated with sterile saline. At this point the wound was clean. Capsule was closed with #1 PDS, Subcutaneous tissues closed with 3-0 PDS and skin was closed with 3-0 nylon. A KIRBY drain was placed into the wound. Sterile dressings were applied. Patient was awakened and transferred to recovery in stable condition. Needle and sponge counts were correct Additional CC's: Jaiden Melendrez Assessment and Plan - Assessment and Plan 1) Left Septic knee s/p I&D - POD 3 -WBAT -work on ROM -awaiting repeat cultures -has previous cultures at [facility]. Gram Stain and fungal from 05/03 is negative for organisms. shows many WBCs. -infectious Dz consult for IV Abx -plan for DC of drain today -medical mgmt -ortho surgeries complete -f/u with Lay or MAURISIO in 2 weeks
[2018-05-15] MEDS: Senna/Docusate Sodium 8.6/50 MG Tablet PO SCH ×2 (08:10→20:16)
[2018-05-15] MEDS: Vancomycin Inj 1,500 MG in Sodium Chlor 0.9% Inj 500 ML IV.SIG SCH ×2 (09:37→20:13)
--- NOTE | 2018-05-15 11:51 | P.PN ---
Subjective Interval history: This is a pleasant 37 y/o Male who presents to the [facility] emergency department with a history of left knee pain that began in April. He has been diagnosed with septic arthritis of the left knee and was admitted to [facility] from April 23 - May 08 status post arthrotomy with irrigation and debridement by Dr. Chun. The patient left that facility AGAINST MEDICAL ADVICE and then came to this facility. He reports that he was unhappy with the care at that facility. The patient was admitted to the hospital for 1 day and then, he left AMA from the hospital again. He reports that he left AMA due to wanting to take a shower. The patient reports that when he went home yesterday evening he had a fever with a T-max of 104.3. He reports that he has noticed increased swelling of his left leg. He is unsure whether he has been checked for a blood clot in that extremity. He reports that he did take Keflex and clindamycin and that he had leftover from a prior prescription. He denies having any chest pain, chest pressure, or shortness of breath. 05/12: Seen in his bedroom, will go for procedure today. 05/13: Status post I and D performed yesterday, Hemovac in place, asked for ID specialist consult by Orthopedic medical coding specialist, no nausea, vomit or diarrhea, the patient wanted to take his drain off and his IV line off, was explained to him the danger for him to play with his left knee infection, explained he may lose his limb, the patient states that will wait until been discharged by specialists, ordered nicotine patch to avoid craving from Tobacco. 05/14: today POD #2, WBAT, work ROM, Waiting repeat cultures, as per ID specialist to continue Zosyn and Vancomycin 05/15: POD#3, Stable in his bedroom, no nausea, vomit or diarrhea, Stable today Orthopedic surgery will remove Drain and perhaps will be able to discharge from Orthopedic surgery standpoint, Discussed with ID specialist Doctor Varun Claire not yet cleared for discharge. Physical Exam Vital signs: Vital Signs 05/14/18 12:00 05/14/18 16:00 05/14/18 20:00 Temperature 97.2 F L 97.8 F 97.1 F L Pulse Rate 65 62 82 Respiratory Rate 19 17 15 Blood Pressure 125/60 132/61 128/84 Pulse Oximetry 98 97 100 05/14/18 23:54 05/15/18 00:00 05/15/18 08:00 Temperature 97.8 F 98.0 F Pulse Rate 66 62 Respiratory Rate 18 20 18 Blood Pressure 122/62 82/40 L Pulse Oximetry 99 97 Intake & Output 05/14/18 05/15/18 05/15/18 18:59 06:59 18:59 Intake Total 1865 / 1865 2915 / 2915 100 / 100 Output Total 350 / 350 Balance 1515 / 1515 2915 / 2915 100 / 100 Weight 95.2 kg Intake: IV 715 / 715 1915 / 1915 100 / 100 NS Inj 1,000 ML @ 100 mls/hr IV 1200 / 1200 .CONT .Q10H TERRY Rx#:[id number] Zosyn 4.5 GM Premix 4.5 gm In 200 / 200 200 / 200 100 / 100 100 ml @ 200 mls/hr IV.SIG Q6H TERRY Rx#:[id number] Vancomycin Inj 1,500 MG In NS 515 / 515 515 / 515 Inj 500 ML @ 250 mls/hr IV.SIG Q12H TERRY Rx#:[id number] Oral 1150 / 1150 1000 / 1000 Output: Urine 300 / 300 Wound Drainage 50 / 50 # 1 Left Knee KIRBY Drain 50 / 50 Other: # Voids 3 6 Narrative: GENERAL: This is a well-nourished, well-developed patient, in no apparent distress. CARDIOVASCULAR: Regular rate and rhythm without murmurs, gallops, or rubs. RESPIRATORY: Clear to auscultation. Breath sounds equal bilaterally. No wheezes , rales, or rhonchi. GASTROINTESTINAL: Abdomen soft, non-tender, nondistended. Normal active bowel sounds MUSCULOSKELETAL: Left knee dressed, Hemovac in place. NEURO: Alert & Oriented x4 to person, place, time, situation. Moves all ext x4 Results - Labs CBC & Chem 7: 05/12/18 20:12 05/14/18 10:08 Laboratory Results - last 24 hr 05/14/18 10:08 Creatinine 1.01 Estimated GFR 83 L Vancomycin Trough 15.5 H Microbiology 05/11/18 02:54 Blood - Peripheral Aerobic Blood Culture - Preliminary No growth in 4 days 05/11/18 02:54 Blood - Peripheral Anaerobic Blood Culture - Preliminary No growth in 4 days 05/11/18 02:49 Blood - Peripheral Aerobic Blood Culture - Preliminary gram positive cocci 05/11/18 02:49 Blood - Peripheral Anaerobic Blood Culture - Preliminary No growth in 4 days 05/12/18 15:58 Fluid - Synovial Fluid Gram Stain - Final 05/12/18 15:58 Fluid - Synovial Fluid Wound Culture - Final No growth in 72 hours (aerobically and anaerobically ) 05/12/18 15:57 Fluid - Synovial Fluid Gram Stain - Final 05/12/18 15:57 Fluid - Synovial Fluid Wound Culture - Final No growth in 72 hours (aerobically and anaerobically ) 05/12/18 15:58 Fluid - Synovial Fluid Acid Fast Bacilli Smear - Final No acid fast bacilli seen 05/12/18 15:57 Fluid - Synovial Fluid Acid Fast Bacilli Smear - Final No acid fast bacilli seen - Procedures - Preoperative Diagnosis (1) Septic arthritis of knee, left Anesthesia: GETA Surgeon: Jaiden Chun MD Clinical Nursing Intern: Cristo Breaux PA-C The surgical procedure was assisted by my physician senior executive assistant. My P.A. presence was necessary throughout this case for the manipulation and positioning of the surgical extremity. My P.A. was assisting me throughout the duration of this procedure. The skill set of a physician senior executive assistant was medically necessary to complete this procedure. During the surgical case the salesperson surgical appliances was working at the back table and the physician senior executive assistant was directly assisting me. Operation and Findings: Patient was seen and evaluated preoperatively. Patient was found to have infection of the left knee joint. Knee effusion and erythema were noted. He recently had irrigation debridement of his left knee approximately 1 week ago at [facility]. He left the hospital AM and presented to [place] where he was admitted. Informed consent was obtained after detailed discussion of risk and benefits of surgery. Operative site was marked. Patient was brought to the operating room. IV sedation and GETA were administered by anesthesiologist. Operative leg was prepped with alcohol followed by Hibiclens and draped in usual sterile fashion. Timeout procedure was performed. Procedure began with a 4 cm incision over the lateral knee through the previous incision. Subcutaneous tissue dissected with Bovie. Iliotibial band was opened in line with fibers. The joint was now opened through arthrotomy. A large volume of purulent fluid was found within the knee. Specimen was obtained for cultures and sensitivities. The knee joint was manipulated. The knee joint was palpated and loculations were manually debrided. A portion of the synovium was excised. After excisional debridement was complete, the wound was thoroughly irrigated with sterile saline. At this point the wound was clean. Capsule was closed with #1 PDS, Subcutaneous tissues closed with 3-0 PDS and skin was closed with 3-0 nylon. A KIRBY drain was placed into the wound. Sterile dressings were applied. Patient was awakened and transferred to recovery in stable condition. Needle and sponge counts were correct Additional CC's: Jaiden Chun Assessment and Plan - Plan Left Septic Knee status post I and D last week at [facility] continue with swelling of the left knee significant fluctuation and tenderness over incision, 1) Left Septic knee s/p I&D last week by [facility], Left lower extremity US no DVT. Sed rate elevated. status post I and D POD#3. -WBAT -work on ROM -Abx Zosyn and Vancomycin Discussed with ID specialist Doctor Varun Claire continue Zosyn and Vancomycin. not yet cleared for discharge today Orthopedic surgery will remove Drain and possible clear for discharge. 2. Tobacco dependence strongly recommended to stop smoking. Nicotine patch started, he has refused in the past 3. IV Drug abuse by history strongly recommended to stop behavior. DVT prophylaxis with SCDs. Code Status: Full code. Discussed Condition With: Patient, Nurse Miss Chavira, ID specialist Doctor Varun Claire Discharge Planning: Expected once cleared by orthopedic Surgery and ID specialist.
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
[2018-05-15] MEDS: Sod Chloride 0.9% Inj 1,000 ML IV.CONT SCH ×2 (20:14→20:16)
[2018-05-16] MEDS: Morphine Inj 4 MG/ML Vial IV.PUSH PRN ×6 (00:19→19:45)
[2018-05-16] MEDS: Sod Chloride 0.9% Inj 1,000 ML IV.CONT SCH (03:04)
[2018-05-16] MEDS: Vancomycin Inj 1,500 MG in Sodium Chlor 0.9% Inj 500 ML IV.SIG SCH ×2 (09:12→19:45)
[2018-05-16] MEDS: Senna/Docusate Sodium 8.6/50 MG Tablet PO SCH ×2 (10:37→21:30)
--- NOTE | 2018-05-16 11:02 | P.PN ---
Subjective Interval history: Follow-up for left knee septic arthritis. Patient is currently doing well. No fever or chills. His pain is well controlled. Tolerating diet well. Physical Exam Vital signs: Vital Signs 05/15/18 12:00 05/15/18 20:00 05/15/18 20:13 Temperature 98.1 F 97.5 F L Pulse Rate 68 66 Respiratory Rate 18 16 20 Blood Pressure 132/66 129/59 L Pulse Oximetry 99 97 05/16/18 00:00 05/16/18 08:00 Temperature 98.2 F 97.9 F Pulse Rate 64 66 Respiratory Rate 16 18 Blood Pressure 130/58 L 137/81 Pulse Oximetry 98 99 Intake & Output 05/15/18 05/16/18 05/16/18 18:59 06:59 18:59 Intake Total 1755 / 1755 995 / 995 Output Total 50 / 50 Balance 1755 / 1755 945 / 945 Weight 95.2 kg Intake: IV 615 / 615 515 / 515 Zosyn 4.5 GM Premix 4.5 gm In 100 / 100 100 ml @ 200 mls/hr IV.SIG Q6H TERRY Rx#:[id number] Vancomycin Inj 1,500 MG In NS 515 / 515 515 / 515 Inj 500 ML @ 250 mls/hr IV.SIG Q12H TERRY Rx#:[id number] Oral 1140 / 1140 480 / 480 Output: Wound Drainage 50 / 50 # 1 Left Knee KIRBY Drain 50 / 50 Other: # Voids 8 4 Date of Last Bowel Movement 05/14/18 # Bowel Movements 1 Narrative: GENERAL: Alert, oriented x3, NAD. SKIN: Warm and dry. HEAD: Normocephalic. EYES: No scleral icterus. No injection or drainage. NECK: Supple, trachea midline. No JVD or lymphadenopathy. CARDIOVASCULAR: Regular rate and rhythm without murmurs, gallops, or rubs. RESPIRATORY: Breath sounds equal bilaterally. No accessory muscle use. GASTROINTESTINAL: Abdomen soft, non-tender, nondistended. MUSCULOSKELETAL: No cyanosis, or edema. Left knee is somewhat tender to palpation, dima in place. BACK: Nontender without obvious deformity. No CVA tenderness. Results - Labs CBC & Chem 7: 05/12/18 20:12 05/16/18 04:30 Laboratory Results - last 24 hr 05/16/18 04:30 Creatinine 1.04 Estimated GFR 80 L Microbiology 05/11/18 02:54 Blood - Peripheral Aerobic Blood Culture - Preliminary No growth in 4 days 05/11/18 02:54 Blood - Peripheral Anaerobic Blood Culture - Preliminary No growth in 4 days 05/11/18 02:49 Blood - Peripheral Aerobic Blood Culture - Preliminary gram positive cocci 05/11/18 02:49 Blood - Peripheral Anaerobic Blood Culture - Preliminary No growth in 4 days 05/12/18 15:58 Fluid - Synovial Fluid Gram Stain - Final 05/12/18 15:58 Fluid - Synovial Fluid Wound Culture - Final No growth in 72 hours (aerobically and anaerobically ) 05/12/18 15:57 Fluid - Synovial Fluid Gram Stain - Final 05/12/18 15:57 Fluid - Synovial Fluid Wound Culture - Final No growth in 72 hours (aerobically and anaerobically ) - Procedures 05/12/2018. I&D of left knee. Assessment and Plan - Plan This is a pleasant 37 y/o Male who presents to the [facility] emergency department with a history of left knee pain that began in April 2018. Patient underwent I&D of left knee by orthopedic surgery. Infectious disease was consulted and currently on vancomycin. Left knee septic arthritis -Continue vancomycin per infectious disease recommendations. -Patient will likely need around 2 weeks of IV antibiotics. Switch to p.o. antibiotics. -Blood culture is growing gram-positive cocci in 1 bottle. This is likely contamination. -Continue [place], morphine for pain management. Tobacco abuse -patient received counseling. 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 Full code. SCDs.
[2018-05-17] MEDS: Morphine Inj 4 MG/ML Vial IV.PUSH PRN ×4 (07:18→20:47)
[2018-05-17] MEDS: Vancomycin Inj 1,500 MG in Sodium Chlor 0.9% Inj 500 ML IV.SIG SCH ×2 (09:31→19:37)
[2018-05-17] MEDS: Senna/Docusate Sodium 8.6/50 MG Tablet PO SCH ×2 (10:52→20:50)
--- NOTE | 2018-05-17 12:32 | P.PN ---
Subjective Interval history: Follow-up for left knee septic arthritis. Patient is resting in bed. No fever or chills. Per RN, patient would like to consider going home. Physical Exam Vital signs: Vital Signs 05/16/18 16:00 05/16/18 20:00 05/17/18 00:00 Temperature 97.4 F L 97.8 F 97.8 F Pulse Rate 60 70 70 Respiratory Rate 18 20 20 Blood Pressure 132/59 L 123/60 139/72 Pulse Oximetry 99 98 98 05/17/18 08:00 05/17/18 12:00 Temperature 97.6 F 97.9 F Pulse Rate 61 70 Respiratory Rate 18 18 Blood Pressure 120/64 129/60 Pulse Oximetry 97 97 Intake & Output 05/16/18 05/17/18 05/17/18 18:59 06:59 18:59 Intake Total 1715 / 1715 1115 / 1115 Balance 1715 / 1715 1115 / 1115 Intake: IV 515 / 515 515 / 515 Vancomycin Inj 1,500 MG In NS 515 / 515 515 / 515 Inj 500 ML @ 250 mls/hr IV.SIG Q12H TERRY Rx#:[id number] Oral 1200 / 1200 600 / 600 Other: # Voids 3 3 Date of Last Bowel Movement 05/15/18 Narrative: GENERAL: Alert, oriented x3, NAD. SKIN: Warm and dry. HEAD: Normocephalic. EYES: No scleral icterus. No injection or drainage. NECK: Supple, trachea midline. No JVD or lymphadenopathy. CARDIOVASCULAR: Regular rate and rhythm without murmurs, gallops, or rubs. RESPIRATORY: Breath sounds equal bilaterally. No accessory muscle use. GASTROINTESTINAL: Abdomen soft, non-tender, nondistended. MUSCULOSKELETAL: No cyanosis, or edema. Left knee is somewhat tender to palpation, dima in place. BACK: Nontender without obvious deformity. No CVA tenderness. Results - Labs CBC & Chem 7: 05/12/18 20:12 05/16/18 04:30 Microbiology 05/11/18 02:49 Blood - Peripheral Aerobic Blood Culture - Final Micrococcus species 05/11/18 02:49 Blood - Peripheral Anaerobic Blood Culture - Final No growth in 5 days 05/11/18 02:54 Blood - Peripheral Aerobic Blood Culture - Final No growth in 5 days 05/11/18 02:54 Blood - Peripheral Anaerobic Blood Culture - Final No growth in 5 days - Procedures 05/12/2018. I&D of left knee. Assessment and Plan - Plan This is a pleasant 37 y/o Male who presents to the [facility] emergency department with a history of left knee pain that began in April 2018. Patient underwent I&D of left knee by orthopedic surgery. Infectious disease was consulted and currently on vancomycin. Left knee septic arthritis -Continue vancomycin per infectious disease recommendations. -Patient will likely need around 2 weeks of IV antibiotics. Switch to p.o. antibiotics. -Blood culture is growing Micrococcus in 1 bottle. This is likely contamination. -Continue [place], morphine for pain management. -ID will likely want to continue IV abx for at least another week. -I will discuss with ID on 05/18/2018 to see if patient can be switched to PO Abx. -If ID continues to recommend IV abx, patient may have to go AMA. Tobacco abuse -patient received counseling. 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 Full code. SCDs.
[2018-05-18] MEDS: Morphine Inj 4 MG/ML Vial IV.PUSH PRN ×4 (00:08→11:06)
[2018-05-18] MEDS: Vancomycin Inj 1,500 MG in Sodium Chlor 0.9% Inj 500 ML IV.SIG SCH ×2 (09:34→20:38)
[2018-05-18] MEDS: Senna/Docusate Sodium 8.6/50 MG Tablet PO SCH ×2 (09:36→20:43)
--- NOTE | 2018-05-18 11:25 | P.PN ---
Subjective Interval history: Follow-up for left knee septic arthritis. Patient is currently doing well. Resting in bed, no fever, chills. He would like to go outside for fresh air if possible. Nursing protocol would not allow this and I agree. Physical Exam Vital signs: Vital Signs 05/17/18 12:00 05/17/18 16:00 05/17/18 20:00 Temperature 97.9 F 97.9 F 98.3 F Pulse Rate 70 72 78 Respiratory Rate 18 18 17 Blood Pressure 129/60 139/62 142/81 H Pulse Oximetry 97 99 99 05/18/18 00:00 05/18/18 08:00 Temperature 98.5 F 98.2 F Pulse Rate 89 112 H Respiratory Rate 16 18 Blood Pressure 140/73 134/69 Pulse Oximetry 98 98 Intake & Output 05/17/18 05/18/18 05/18/18 18:59 06:59 18:59 Intake Total 1615 / 1615 1435 / 1435 Balance 1615 / 1615 1435 / 1435 Weight 94.9 kg Intake: IV 515 / 515 515 / 515 Vancomycin Inj 1,500 MG In NS 515 / 515 515 / 515 Inj 500 ML @ 250 mls/hr IV.SIG Q12H TERRY Rx#:[id number] Oral 1100 / 1100 920 / 920 Other: # Voids 3 6 Narrative: GENERAL: Alert, oriented x3, NAD. SKIN: Warm and dry. HEAD: Normocephalic. EYES: No scleral icterus. No injection or drainage. NECK: Supple, trachea midline. No JVD or lymphadenopathy. CARDIOVASCULAR: Regular rate and rhythm without murmurs, gallops, or rubs. RESPIRATORY: Breath sounds equal bilaterally. No accessory muscle use. GASTROINTESTINAL: Abdomen soft, non-tender, nondistended. MUSCULOSKELETAL: No cyanosis, or edema. Left knee is somewhat tender to palpation, dima in place. BACK: Nontender without obvious deformity. No CVA tenderness. Results - Labs CBC & Chem 7: 05/12/18 20:12 05/16/18 04:30 Microbiology 05/11/18 02:49 Blood - Peripheral Aerobic Blood Culture - Final Micrococcus species 05/11/18 02:49 Blood - Peripheral Anaerobic Blood Culture - Final No growth in 5 days - Procedures 05/12/2018. I&D of left knee. Assessment and Plan - Plan This is a pleasant 37 y/o Male who presents to the [facility] emergency department with a history of left knee pain that began in April 2018. Patient underwent I&D of left knee by orthopedic surgery. Infectious disease was consulted and currently on vancomycin. Left knee septic arthritis -Continue vancomycin per infectious disease recommendations. -Patient will likely need around 2 weeks of IV antibiotics. Switch to p.o. antibiotics. -Blood culture is growing Micrococcus in 1 bottle. This is likely contamination. -Continue [place], morphine for pain management. -Patient will likely need total 2 weeks of IV abx before switching to PO abx. Tobacco abuse -patient received counseling. 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 Unfortunately, we cannot let him go off the floor. I will discuss with ID about possible switch from IV to PO. Full code. SCDs.
[2018-05-19 02:53] VITALS: BP 148/80; PULSE 87; RESP 18; TEMP 97.7; O2SAT 98
--- NOTE | 2018-05-19 05:17 | P.PNADD ---
Addendum to Inpatient Note Reason for Addendum: Additional Documentation Additional information: Patient eloped; notified by nursing staff.
[2018-05-19] MEDS ORDERED: Pharmacy Ordered Lab Info OTHER ONE (07:45)
--- NOTE | 2018-05-25 22:43 | P.DS ---
Date of admission: 05/13/18 12:03 Primary care physician: No Primary Care Physician Brief History from admission: This is a pleasant 37 y/o Male who presents to the [facility] emergency department with a history of left knee pain that began in April. He has been diagnosed with septic arthritis of the left knee and was admitted to [facility] from April 23 - May 08 status post arthrotomy with irrigation and debridement by Dr. Chun. The patient left that facility AGAINST MEDICAL ADVICE and then came to this facility. He reports that he was unhappy with the care at that facility. The patient was admitted to the hospital for 1 day and then, he left AMA from the hospital again. He reports that he left AMA due to wanting to take a shower. The patient reports that when he went home yesterday evening he had a fever with a T-max of 104.3. He reports that he has noticed increased swelling of his left leg. He is unsure whether he has been checked for a blood clot in that extremity. He reports that he did take Keflex and clindamycin and that he had leftover from a prior prescription. He denies having any chest pain, chest pressure, or shortness of breath. DS: Summary Hospital Course: \This is a pleasant 37 y/o Male who presents to the [facility] emergency department with a history of left knee pain that began in April 2018. Patient underwent I&D of left knee by orthopedic surgery. Infectious disease was consulted and currently on vancomycin. Left knee septic arthritis -Continue vancomycin per infectious disease recommendations. -Patient will likely need around 2 weeks of IV antibiotics. Switch to p.o. antibiotics. -Blood culture is growing Micrococcus in 1 bottle. This is likely contamination. -Continue Brave, morphine for pain management. -Patient will likely need total 2 weeks of IV abx before switching to PO abx. Tobacco abuse -patient received counseling. 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 Unfortunately, we cannot let him go off the floor. I will discuss with ID about possible switch from IV to PO. Full code. SCDs. Overall, our plan was to provide total two weeks of IV abx and then discharge on PO abx. We explained to the patient multiple times. He verbalized understanding as well. Unfortunately, [place] el[place] in [place] on [place]. This would be considered leaving Against Medical Advice. - Time Spent with Patient Total time spent providing and/or coordinating discharge services: Less than 30 minutes - Quality: VTE Deep Vein Thrombosis/Pulmonary Embolism Present on Admission: No Results Procedures completed during hospitalization: 05/12/2018. I&D of left knee. Labs on day of discharge: Preliminary micro results at discharge 05/12/18 15:57 Fungal Culture - Preliminary Fluid - Synovial Fluid No growth in 1 week 05/12/18 15:57 Mycobacterial Culture - Preliminary Fluid - Synovial Fluid No growth in 1 week 05/12/18 15:58 Fungal Culture - Preliminary Fluid - Synovial Fluid No growth in 1 week 05/12/18 15:58 Mycobacterial Culture - Preliminary Fluid - Synovial Fluid No growth in 1 week - Impressions ITS Impressions Chest X-Ray 05/11/18 02:51 CONCLUSION: Mildly underinflated examination without an acute cardiopulmonary abnormality identified. Venous Doppler Study 05/11/18 02:56 CONCLUSION: No venous thrombosis is identified in the left lower extremity. Discharge Plan - Discharge Disposition Patient Disposition: 07 Against Medical Advice - Discharge Order Discharge Orders: AMA Discharge (Routine); Ordered 05/19/18 Ordered By: Nkechi Anderson - Physicians Team Primary Care Provider: Primary Care Ghada,Sowmya Attending Provider: Rudy Herman Other Providers: Jaiden Chun MD ; Varun Claire MD
== END 2018-05-19 07:07 | disposition left against medical advice (07) ==
LOC: NEPE 01:15 → NEDA 03:54 → INTOOBSV 03:54 → NEDA 04:55 → N07 05:00
PROVIDERS: ADMIT Hospitalist; ATTEND Hospitalist